=== PATIENT | male | born 1940 | race African-American/Black ===

== ENCOUNTER 2016-10-06 20:24 | Emergency (ER) | payer OTHER, MEDICARE ==
[~2016-10-06] VITALS: Ht 170.2 cm; Wt 48.1 kg
[~2016-10-06 20:24] MED LIST: ALBU2.5V7 INH; CARB-60 PO; COR12.5 PO; DOCU-144 PO; INSU100V SQ; INSU100V9 SUBCUT; MULT-1189 PO; NOR10 PO; SENN-153 PO
--- NOTE | 2016-10-06 20:39 | NUR ---
Placed in room 08 . Placed on apartment property manager, blood pressure machine and pulse oximeter. To gown for exam. Side rails up.
[2016-10-06 20:40] VITALS: BP 125/62; PULSE 90; RESP 18; TEMP 98.3; O2SAT 98
--- NOTE | 2016-10-06 20:45 | NUR ---
ER Dr. Rocha at bedside examining patient.
[2016-10-06] MEDS ORDERED: NACL 0.9% 1,000 ML IV SCH (20:49)
--- NOTE | 2016-10-06 20:55 | NUR ---
Pt came from home, A&Ox4, c/o low blood pressure, dizziness, lightheadedness and rash. Rash noted to groin area. No chest pain or sob noted. MD aware. Safety maintained. Continue to monitor
[2016-10-06 21:19] LABS: ANION GAP 8 (5-15); CALCIUM 8.7 mg/dL (8.4-11.0); CHLORIDE 106 mmol/L (98-107); CREATININE 1.75 mg/dL (0.55-1.30); GLUCOSE 205 mg/dL (70-99); SODIUM SERUM 138 mmol/L (136-145); UREA NITROGEN, BLOOD 25 mg/dL (8-21)
[2016-10-06 21:22] LABS: BASOPHILS # (AUTO) 0.1 K/uL (0.0-0.2); EOSINOPHILS % (AUTO) 0.4 % (0.0-4.0); HEMATOCRIT 35.6 % (36-54); HEMOGLOBIN 12.4 g/dL (14.0-18.0); LYMPHOCYTES # (AUTO) 2.2 K/uL (1.0-5.5); LYMPHOCYTES % (AUTO) 20.2 % (20.5-51.5); MEAN CORPUSCULAR HEMOGLOBIN 33 pg (27-31); MEAN CORPUSCULAR HGB CONC 35 % (32-36); MEAN CORPUSCULAR VOLUME 94 fL (79.0-98.0); MONOCYTES # (AUTO) 0.7 K/uL (0.0-1.0); NEUTROPHILS # (AUTO) 7.6 K/uL (1.8-7.7); NEUTROPHILS % (AUTO) 71.4 % (40.0-70.0); PLATELET COUNT (AUTO) 180 K/uL (130-430); RED BLOOD CELL COUNT(AUTO) 3.78 MIL/uL (4.2-6.2); WHITE BLOOD COUNT (AUTO) 10.6 K/uL (4.8-10.8)
[2016-10-06 21:24] LABS: ALANINE AMINOTRANSFERASE 28 U/L (12-78); ALBUMIN 3.7 g/dL (3.4-4.8); ASPARTATE AMINOTRANSFERASE 19 U/L (10-37); TOTAL BILIRUBIN 0.8 mg/dL (0.0-1.0); TOTAL PROTEIN, SERUM 6.7 g/dL (6.4-8.3)
[2016-10-07] MEDS ORDERED: CLOTRIMAZOLE 1% TOPICAL CREAM 15 GM TP ONE
[2016-10-07 00:01] VITALS: BP 118/70; PULSE 90; RESP 18; TEMP 98.3; O2SAT 98
--- NOTE | 2016-10-07 00:01 | NUR ---
Patient given written and verbal discharge instructions and verbalizes understanding. ER MD discussed with patient the results and treatment provided. Patient in stable condition. ID arm band removed. IV catheter removed intact and dressing applied, no active bleeding. Rx of Lotrimin given. Patient educated on pain management and to follow up with PMD. Pain Scale 0/10. Opportunity for questions provided and answered.
== END 2016-10-07 00:01 | disposition home or self-care (01) ==
LOC: SED 20:24
DX: E86.0 Dehydration (principal); B35.9 Dermatophytosis, unspecified; E11.9 Type 2 diabetes mellitus without complications; G20 Parkinson's disease; F02.80 Dementia in other diseases classified elsewhere, unspecified severity, without behavioral disturbance, psychotic disturbance, mood disturbance, and anxiety; Z79.4 Long term (current) use of insulin; Z79.899 Other long term (current) drug therapy
CPT/HCPCS: 36415; 71010; 80053; 83605; 84484; 85025; 85610; 85730; 93005; 96360; 99285; J7030

== ENCOUNTER 2017-01-21 15:21 | Inpatient (IN) | payer OTHER, MEDICARE ==
[~2017-01-21] VITALS: Ht 167.6 cm; Wt 81.6 kg
[2017-01-21 15:46] VITALS: BP_SYST 85
[2017-01-21] MEDS ORDERED: ONDANSETRON HCL 4 MG/2 ML VIAL IVP ONE (16:15)
[2017-01-21] MEDS ORDERED: NACL 0.9% 1,000 ML IV ONE (16:15)
[2017-01-21 16:16] LABS: BASOPHILS # (AUTO) 0.1 K/uL (0.0-0.2); BASOPHILS % (AUTO) 1.1 % (0.0-2.0); EOSINOPHILS % (AUTO) 0.1 % (0.0-4.0); HEMATOCRIT 37.5 % (36-54); HEMOGLOBIN 12.6 g/dL (14.0-18.0); LYMPHOCYTES # (AUTO) 1.8 K/uL (1.0-5.5); LYMPHOCYTES % (AUTO) 14.5 % (20.5-51.5); MEAN CORPUSCULAR HEMOGLOBIN 33 pg (27-31); MEAN CORPUSCULAR HGB CONC 34 % (32-36); MEAN CORPUSCULAR VOLUME 97 fL (79.0-98.0); MONOCYTES # (AUTO) 0.3 K/uL (0.0-1.0); MONOCYTES % (AUTO) 2.2 % (1.7-9.3); NEUTROPHILS # (AUTO) 10.1 K/uL (1.8-7.7); NEUTROPHILS % (AUTO) 82.1 % (40.0-70.0); PLATELET COUNT (AUTO) 177 K/uL (130-430); RED BLOOD CELL COUNT(AUTO) 3.87 MIL/uL (4.2-6.2); RED CELL DISTRIBUTION WIDTH 12.2 % (9.0-15.0); WHITE BLOOD COUNT (AUTO) 12.3 K/uL (4.8-10.8)
[2017-01-21 16:39] LABS: ANION GAP 5 (5-15); CALCIUM 9.5 mg/dL (8.4-11.0); CHLORIDE 104 mmol/L (98-107); CREATININE 2.42 mg/dL (0.55-1.30); GLUCOSE 270 mg/dL (70-99); POTASSIUM 4.9 mmol/L (3.5-5.1); SODIUM SERUM 136 mmol/L (136-145); UREA NITROGEN, BLOOD 27 mg/dL (8-21)
[2017-01-21 16:41] LABS: PROTHROMBIN TIME 10.8 SECS (9.5-12.5)
[2017-01-21 16:44] LABS: ALANINE AMINOTRANSFERASE 21 U/L (12-78); ALBUMIN 3.8 g/dL (3.4-4.8); ASPARTATE AMINOTRANSFERASE 18 U/L (10-37); TOTAL BILIRUBIN 1.1 mg/dL (0.0-1.0)
[2017-01-21] MEDS ORDERED: PIPERACILLIN/TAZO 3.38 GM in D5W 50 ML IV ONE (18:00)
[2017-01-21] MEDS ORDERED: VANCOMYCIN HCL 1,000 MG in D5W 250 ML IV ONE (18:00)
[2017-01-21] MEDS ORDERED: PIPERACILLIN/TAZOBACTAM 3.375 GM/VIAL (ZOSYN) IV ONE (18:07)
[2017-01-21] MEDS ORDERED: VANCOMYCIN HCL 1000 MG/VIAL IV ONE (18:07)
[2017-01-21 18:37] LABS: BILIRUBIN,URINE NEGATIVE (NEGATIVE); BLOOD, URINE NEGATIVE (NEGATIVE); CLARITY/URINE HAZY (CLEAR); COLOR,URINE YELLOW (YELLOW); GLUCOSE,URINE NEGATIVE (NEGATIVE); KETONES,URINE TRACE (NEGATIVE); LEUKOCYTE ESTERASE ,URINE NEGATIVE (NEGATIVE); NITRITE, URINE NEGATIVE (NEGATIVE); PH,URINE 5.5 (5.0-8.0); PROTEIN URINE 1+ (NEGATIVE); UROBILINOGEN,URINE 0.2 (0.2-1.0)
[2017-01-21 19:29] LABS: BACTERIA,URINE FEW /HPF (None Seen); MUCUS,URINE 3+ /LPF (None Seen); RBC,URINE 0-3 /HPF (0-3)
[2017-01-21 19:30] LABS: FINE GRANULAR CASTS,URINE 30-50 /LPF (None Seen)
[2017-01-21 19:56] VITALS: BP_SYST 149
[2017-01-21 20:00] VITALS: BP_SYST 149
[2017-01-21] MEDS ORDERED: ALBUTEROL SULFATE 0.083% 2.5 MG/3 ML VIAL.NEB INH PRN (23:30)
[2017-01-21 23:50] VITALS: BP_SYST 149
[2017-01-22] VITALS: BP_SYST 134
[2017-01-22] MEDS ORDERED: ACETAMINOPHEN 325 MG TABLET PO PRN
[2017-01-22] MEDS ORDERED: DEXTROSE 50% JECT 50 ML DISP.SYRIN IVP PRN
[2017-01-22 04:01] VITALS: BP_SYST 129
[2017-01-22 06:36] LABS: BASOPHILS % (AUTO) 0.2 % (0.0-2.0); EOSINOPHILS # (AUTO) 0.1 K/uL (0.0-0.4); EOSINOPHILS % (AUTO) 0.5 % (0.0-4.0); HEMATOCRIT 35.7 % (36-54); HEMOGLOBIN 12.2 g/dL (14.0-18.0); LYMPHOCYTES # (AUTO) 3.3 K/uL (1.0-5.5); LYMPHOCYTES % (AUTO) 22.5 % (20.5-51.5); MEAN CORPUSCULAR HEMOGLOBIN 33 pg (27-31); MEAN CORPUSCULAR HGB CONC 34 % (32-36); MEAN CORPUSCULAR VOLUME 97 fL (79.0-98.0); MONOCYTES # (AUTO) 0.8 K/uL (0.0-1.0); MONOCYTES % (AUTO) 5.5 % (1.7-9.3); NEUTROPHILS # (AUTO) 10.5 K/uL (1.8-7.7); NEUTROPHILS % (AUTO) 71.3 % (40.0-70.0); PLATELET COUNT (AUTO) 166 K/uL (130-430); RED BLOOD CELL COUNT(AUTO) 3.69 MIL/uL (4.2-6.2); WHITE BLOOD COUNT (AUTO) 14.7 K/uL (4.8-10.8)
[2017-01-22 07:08] LABS: POTASSIUM 4.2 mmol/L (3.5-5.1); SODIUM SERUM 141 mmol/L (136-145)
[2017-01-22 07:25] LABS: ERYTHROCYTE SEDIMENTATION RATE 13 MM/HR (0-15)
[2017-01-22 07:51] LABS: ALANINE AMINOTRANSFERASE 28 U/L (12-78); ALBUMIN 3.5 g/dL (3.4-4.8); ANION GAP 5 (5-15); ASPARTATE AMINOTRANSFERASE 20 U/L (10-37); CALCIUM 9.4 mg/dL (8.4-11.0); CHLORIDE 108 mmol/L (98-107); CREATININE 1.45 mg/dL (0.55-1.30); FREE T4 (FREE THYROXINE) 0.6 ng/dL (0.6-1.6); GLUCOSE 106 mg/dL (70-99); TOTAL BILIRUBIN 1.4 mg/dL (0.0-1.0); TOTAL PROTEIN, SERUM 6.7 g/dL (6.4-8.3); UREA NITROGEN, BLOOD 22 mg/dL (8-21)
[2017-01-22 08:00] VITALS: BP_SYST 140
[2017-01-22] MEDS: CARBIDOPA/LEVODOPA 10/100 MG TABLET PO SCH ×4 (08:45→20:50)
[2017-01-22] MEDS: TAMSULOSIN HCL 0.4 MG CAP PO SCH (08:45)
[2017-01-22] MEDS: DOCUSATE SODIUM 100 MG CAPSULE PO SCH (08:45)
[2017-01-22] MEDS: CARVEDILOL 12.5 MG TABLET (COREG) PO SCH ×2 (08:45→20:49)
[2017-01-22] MEDS: SENNOSIDES 8.6 MG TABLET PO SCH (08:45)
[2017-01-22] MEDS ORDERED: amLODIPine BESYLATE 10 MG TABLET PO SCH (09:00)
[2017-01-22 12:26] VITALS: BP_SYST 132
[2017-01-22 16:07] VITALS: BP_SYST 136
[2017-01-22] MEDS ORDERED: INSULIN REGULAR, HUMAN 100 UNITS/ML, 10 ML VIAL (novoLIN R) SUBCUT PRN ×2 (19:00)
[2017-01-22 20:00] VITALS: BP_SYST 134
[2017-01-22] MEDS: cefTRIAXone 1 GM in D5W 50 ML IV SCH (20:48)
[2017-01-22] MEDS: AZITHROMYCIN 500 MG in NS 250 ML IV SCH (22:14)
[2017-01-23 00:05] VITALS: BP_SYST 133
[2017-01-23 03:51] VITALS: BP_SYST 128
[2017-01-23 07:18] LABS: ANION GAP 2 (5-15); CALCIUM 9.4 mg/dL (8.4-11.0); CHLORIDE 105 mmol/L (98-107); CREATININE 1.17 mg/dL (0.55-1.30); GLUCOSE 93 mg/dL (70-99); POTASSIUM 4.4 mmol/L (3.5-5.1); SODIUM SERUM 138 mmol/L (136-145); UREA NITROGEN, BLOOD 20 mg/dL (8-21)
[2017-01-23] MEDS: TAMSULOSIN HCL 0.4 MG CAP PO SCH (09:23)
[2017-01-23] MEDS: CARVEDILOL 12.5 MG TABLET (COREG) PO SCH ×2 (09:23→20:57)
[2017-01-23] MEDS: SENNOSIDES 8.6 MG TABLET PO SCH (09:24)
[2017-01-23] MEDS: DOCUSATE SODIUM 100 MG CAPSULE PO SCH (09:24)
[2017-01-23 09:26] VITALS: BP_SYST 146
[2017-01-23 11:07] LABS: FREE PSA 0.07 ng/mL; PROSTATE SPECIFIC AG TOTAL 0.2 ng/mL (0.0-4.0)
[2017-01-23] MEDS: CARBIDOPA/LEVODOPA 10/100 MG TABLET PO SCH ×4 (11:10→20:56)
[2017-01-23 11:31] VITALS: BP_SYST 139
[2017-01-23 13:02] LABS: HEMOGLOBIN A1C 6.6 % (4.8-5.6)
[2017-01-23] MEDS ORDERED: INSULIN ASPART 100 UNITS/ML, 10 ML VIAL (NovoLOG) SUBCUT PRN (15:45)
[2017-01-23 16:43] VITALS: BP_SYST 131
[2017-01-23] MEDS: cefTRIAXone 1 GM in D5W 50 ML IV SCH (17:07)
[2017-01-23] MEDS: AZITHROMYCIN 500 MG in NS 250 ML IV SCH (17:08)
[2017-01-24 04:53] VITALS: BP_SYST 128
[2017-01-24 06:21] LABS: BASOPHILS % (AUTO) 0.4 % (0.0-2.0); EOSINOPHILS # (AUTO) 0.2 K/uL (0.0-0.4); HEMATOCRIT 36.2 % (36-54); HEMOGLOBIN 12.4 g/dL (14.0-18.0); LYMPHOCYTES # (AUTO) 3.7 K/uL (1.0-5.5); LYMPHOCYTES % (AUTO) 38.4 % (20.5-51.5); MEAN CORPUSCULAR HEMOGLOBIN 33 pg (27-31); MEAN CORPUSCULAR HGB CONC 34 % (32-36); MEAN CORPUSCULAR VOLUME 97 fL (79.0-98.0); MONOCYTES # (AUTO) 0.7 K/uL (0.0-1.0); MONOCYTES % (AUTO) 6.8 % (1.7-9.3); NEUTROPHILS % (AUTO) 52.4 % (40.0-70.0); PLATELET COUNT (AUTO) 176 K/uL (130-430); RED BLOOD CELL COUNT(AUTO) 3.71 MIL/uL (4.2-6.2); RED CELL DISTRIBUTION WIDTH 12.1 % (9.0-15.0); WHITE BLOOD COUNT (AUTO) 9.6 K/uL (4.8-10.8)
[2017-01-24 06:32] LABS: ALANINE AMINOTRANSFERASE 20 U/L (12-78); ALBUMIN 3.4 g/dL (3.4-4.8); ANION GAP 5 (5-15); ASPARTATE AMINOTRANSFERASE 24 U/L (10-37); CALCIUM 8.9 mg/dL (8.4-11.0); CHLORIDE 106 mmol/L (98-107); CREATININE 1.21 mg/dL (0.55-1.30); GLUCOSE 76 mg/dL (70-99); POTASSIUM 3.9 mmol/L (3.5-5.1); SODIUM SERUM 140 mmol/L (136-145); THYROID STIMULATING HORMONE 7.06 uIu/mL (0.34-4.82); TOTAL BILIRUBIN 0.8 mg/dL (0.0-1.0); TOTAL PROTEIN, SERUM 6.5 g/dL (6.4-8.3); UREA NITROGEN, BLOOD 20 mg/dL (8-21)
[2017-01-24 08:00] VITALS: BP_SYST 125
[2017-01-24] MEDS: CARBIDOPA/LEVODOPA 10/100 MG TABLET PO SCH ×2 (08:57→12:01)
[2017-01-24] MEDS: DOCUSATE SODIUM 100 MG CAPSULE PO SCH (08:58)
[2017-01-24] MEDS: SENNOSIDES 8.6 MG TABLET PO SCH (08:58)
[2017-01-24] MEDS: CARVEDILOL 12.5 MG TABLET (COREG) PO SCH (08:58)
[2017-01-24] MEDS: TAMSULOSIN HCL 0.4 MG CAP PO SCH (08:58)
[2017-01-24 11:45] VITALS: BP_SYST 111
[2017-01-24 14:00] VITALS: BP_SYST 111
[2017-01-24 14:38] VITALS: BP_SYST 121
[2017-01-24] MEDS ORDERED: LEVO250T20 PO (14:56)
[2017-01-24] MEDS ORDERED: L.RH1CAP PO (14:57)
[2017-01-24] MEDS ORDERED: INSU100V11 SQ (14:58)
[2017-01-24 16:00] VITALS: BP_SYST 139
== END 2017-01-24 16:04 | disposition home health service (06) | DRG 871 ==
LOC: SED 15:21 → STU 18:36 → SMU 01-23 19:03
PROVIDERS: ADMIT Internal Medicine; ATTEND Internal Medicine
DX: A41.9 Sepsis, unspecified organism (principal); N17.0 Acute kidney failure with tubular necrosis; G93.41 Metabolic encephalopathy; B34.9 Viral infection, unspecified; F03.90 Unspecified dementia, unspecified severity, without behavioral disturbance, psychotic disturbance, mood disturbance, and anxiety; I10 Essential (primary) hypertension; G20 Parkinson's disease; E86.0 Dehydration; N40.0 Benign prostatic hyperplasia without lower urinary tract symptoms; E03.9 Hypothyroidism, unspecified; E11.649 Type 2 diabetes mellitus with hypoglycemia without coma; W01.0XXA Fall on same level from slipping, tripping and stumbling without subsequent striking against object, initial encounter; Y99.8 Other external cause status; Z79.899 Other long term (current) drug therapy; Z79.4 Long term (current) use of insulin; Y93.89 Activity, other specified; Y92.89 Other specified places as the place of occurrence of the external cause; Z86.73 Personal history of transient ischemic attack (TIA), and cerebral infarction without residual deficits
CPT/HCPCS: 36415; 70450-TC; 71010; 71020-TC; 76770; 80048; 80053; 81000-TC; 82607; 82962; 83036; 83605; 83880; 84100-TC; 84153; 84439; 84443-TC; 84484; 85025; 85610-TC; 85651-TC; 85730-TC; 87040-TC; 87086; 93005; 95816; 96361; 96365; 99285; J0456; J0696; J1815; J2543; J3370; J7030; J7050; J7060

== ENCOUNTER 2018-11-12 21:13 | Inpatient (IN) | payer OTHER, MEDICARE ==
[~2018-11-12] VITALS: Ht 177.8 cm; Wt 74.8 kg
[~2018-11-12 21:13] MED LIST changes: +INSU100V11 SQ; +L.RH1CAP PO; +LEVO250T2 PO; -NOR10 PO
[2018-11-12 21:20] VITALS: BP_SYST 127
--- NOTE | 2018-11-12 21:26 | NUR ---
Patient triaged and placed in waiting room. VSS and patient appears in no acute distress at this time. Accompanied by family, awaiting available bed, and MD notified of need for MSE.
--- NOTE | 2018-11-12 22:13 | NUR ---
Patient to ER bed 05 to gown for evaluation. Side rails up. Report given to ANAND Gonsalves
--- NOTE | 2018-11-12 22:24 | NUR ---
Radiology at bedside for XR
--- NOTE | 2018-11-12 22:28 | NUR ---
Pt AAOx4 ambulated into ED with walker c/o 03/19 pain to R hip s/p fall x 2 days ago. Pt denies KO/N/V/D. No deformity noted to site. No other injuries/complaints per pt/noted. Will continue to monitor.
--- NOTE | 2018-11-12 22:36 | NUR ---
ER Dr. Ledbetter at bedside examining patient.
--- NOTE | 2018-11-12 22:51 | NUR ---
Pt dressed in gown and awaiting exam by MD Ledbetter.
[2018-11-12 23:41] LABS: HEMATOCRIT 32.9 % (36-54); HEMOGLOBIN 10.9 g/dL (14.0-18.0); MEAN CORPUSCULAR HEMOGLOBIN 33 pg (27-31); MEAN CORPUSCULAR HGB CONC 33 % (32-36); MEAN CORPUSCULAR VOLUME 101 fL (79.0-98.0); PLATELET COUNT (AUTO) 182 K/uL (130-430); RED BLOOD CELL COUNT(AUTO) 3.27 MIL/uL (4.2-6.2); RED CELL DISTRIBUTION WIDTH 13.8 % (9.0-15.0); WHITE BLOOD COUNT (AUTO) 29.7 K/uL (4.8-10.8)
--- NOTE | 2018-11-12 23:46 | NUR ---
Xray at bedside, pt tolerated well.
[2018-11-12 23:53] LABS: ATYPICAL LYMPHOCYTES % 3 % (0-0); BAND % (MANUAL) 5 % (0-6); BASOPHILS % (MANUAL) 0 % (0-2); EOSINOPHILS % (MANUAL) 0 % (0-7); LYMPHOCYTES % (MANUAL) 77 % (20-46); METAMYELOCYTES % 0 % (0-0); MONOCYTES % (MANUAL) 4 % (0-11); MYELOCYTES % 0 % (0-0)
[2018-11-12 23:56] LABS: ANION GAP 10 (5-15); CALCIUM 8.8 mg/dL (8.4-11.0); CHLORIDE 104 mmol/L (98-107); GLUCOSE 113 mg/dL (70-99); POTASSIUM 4.6 mmol/L (3.5-5.1); SODIUM SERUM 138 mmol/L (136-145); UREA NITROGEN, BLOOD 45 mg/dL (8-21)
[2018-11-13 00:01] LABS: ALANINE AMINOTRANSFERASE 14 U/L (12-78); ALBUMIN 3.4 g/dL (3.4-4.8); ASPARTATE AMINOTRANSFERASE 24 U/L (10-37); TOTAL BILIRUBIN 0.6 mg/dL (0.0-1.0)
[2018-11-13] MEDS ORDERED: MORPHINE 2 MG/ML INJ. SYRINGE IM ONE (01:45)
[2018-11-13 02:18] LABS: BILIRUBIN,URINE NEGATIVE (NEGATIVE); BLOOD, URINE NEGATIVE (NEGATIVE); CLARITY/URINE CLEAR (CLEAR); COLOR,URINE YELLOW (YELLOW); GLUCOSE,URINE NEGATIVE (NEGATIVE); KETONES,URINE TRACE (NEGATIVE); LEUKOCYTE ESTERASE ,URINE NEGATIVE (NEGATIVE); NITRITE, URINE NEGATIVE (NEGATIVE); PH,URINE 6.5 (5.0-8.0); PROTEIN URINE TRACE (NEGATIVE); UROBILINOGEN,URINE 0.2 (0.2-1.0)
[2018-11-13 02:25] LABS: BACTERIA,URINE FEW /HPF (None Seen); WBC,URINE 0-3 /HPF (0-3)
--- NOTE | 2018-11-13 02:29 | NUR ---
Ultrasound at bedside.
[2018-11-13] MEDS ORDERED: VANCOMYCIN HCL 1,000 MG in NS 250 ML IV ONE (02:30)
[2018-11-13] MEDS ORDERED: PIPERACILLIN/TAZO 3.375 GM in NS 50 ML IV ONE (02:30)
[2018-11-13] MEDS ORDERED: VANCOMYCIN HCL 1000 MG/VIAL IV ONE (03:06)
[2018-11-13] MEDS ORDERED: PIPERACILLIN/TAZOBACTAM 3.375 GM/VIAL (ZOSYN) IV ONE (03:06)
--- NOTE | 2018-11-13 03:19 | NUR ---
Patient will be admitted to care of DR. Rao. Admitted to Med Surg unit. Will go to room 132 A. Belongings list completed. Summary report printed. Report will be given at bedside.
--- NOTE | 2018-11-13 03:19 | NUR ---
Transfer to [facility]. IV present no sign or symptom of infiltration.
--- NOTE | 2018-11-13 03:28 | NUR ---
ADMISSION: The patient, HEYDI CHAMPAGNE V, 78 y/o, M admitted by DEMARCUS ATKINS MD, to room 132 a with the diagnosis of multiple fall , r hip trauma ,was given written information regarding hospital policies, unit procedures and contact persons.
[2018-11-13 03:30] VITALS: BP_SYST 145
--- NOTE | 2018-11-13 03:50 | NUR ---
ADMISSION PHYSICAL ASSESSMENT NOTES; report given by nurse scot White. awake, alert but disoriented. oriented to place, and use of call light. IV antibiotic started and regulated via left antecubital. no acute distress, hx of fall, rt. hip pain due to trauma of falling. VS checked, routine admission done. moves all extremities. skin intact, on room air no shortness of breath. fall risk precautions, bed alarm on, side rails up. waiting for Lactic acid result.
[2018-11-13 04:00] VITALS: BP_SYST 145
--- NOTE | 2018-11-13 04:14 | NUR ---
NOTES: pt. did not use call light, got out of bed to void, set off bed alarm. back to bed, alarm on. pt. room close to nurses station.
--- NOTE | 2018-11-13 04:44 | NUR ---
NOTES: pt. get out of bed without calling, voided per urinal. reminded pt. to use call light for help.
--- NOTE | 2018-11-13 05:30 | NUR ---
NOTES; pt. been awake, and getting up and out of bed to void. denies any pain,
--- NOTE | 2018-11-13 06:45 | NUR ---
CLOSING NOTES; pt. looking for his , getting disoriented but calm, informed him will call , back to bed, alarm on. IV antibiotic still infusing. fall risk precautions. call light at bedside, forgets to use call light, frequent rounds. for further care and assistance.
--- NOTE | 2018-11-13 07:55 | NUR ---
INITIAL NOTE RECEIVED PT IN BED, NO S/S OF DISTRESS OR SOB NOTED, PT HAS NO C/O PAIN AT THIS TIME, PT IN STABLE CONDITION. PT AAOX1, VERBAL, CONFUSED BUT ABLE TO FOLLOW SIMPLE DIRECTIONS, PROVIDED PT WITH REALITY ORIENTATION. IV CATHETER PATENT, NO SIGNS OF INFECTION OR INFILTRATION NOTED, SALINE LOCK. BED AT LOWEST POSITION, CALL LIGHT WITHIN REACH, WILL CONTINUE TO MONITOR PT FOR ANY CHANGES, SAFETY AND FALL PRECAUTIONS IN PLACE.
[2018-11-13 08:20] VITALS: BP_SYST 148
--- NOTE | 2018-11-13 08:57 | NUR ---
Nutrition Update Jose Rafael Scale 14 noted. Pt admitted for multiple falls w/ R hip trauma. Diet: mechanical soft BMI: 23.7 kg/m2 RD to follow per nutrition care standards.
--- NOTE | 2018-11-13 09:30 | NUR ---
RESTLESS/CONFUSED PT CONFUSED, REMOVED IV CATHETER,NO ACTIVE BLEEDING NOTED, DRESSING IN PLACE, CATHETER IN PLACE. PT ATTEMPTING TO GET OUT OF BED, NO DIRECTABLE, PT ALREADY FELL BEFORE COMING TO HOSPITAL AND IS A HIGH RISK FOR FALLS. BED ALARM ON, YELLOW GOWN, SOCKS AND BAND ON.
--- NOTE | 2018-11-13 09:38 | NUR ---
MD CALL SPOKE WITH DR ATKINS IN REGARDS TO PT BEING CONFUSED AND PULLING OUT HIS IV CATHETER, NO ACTIVE BLEEDING NOTED, DRESSING IN PLACE, UNABLE TO ORIENT PT DUE TO MENTAL STATUS, ORDERED SITTER FOR SAFETY, FALL PRECAUTIONS IN PLACE, YELLOW GOWN, SOCK, YELLOW WRISTBAND AND BED ALARM ON.
--- NOTE | 2018-11-13 10:25 | NUR ---
ROUNDS PT IN BED, NO S/S OF DISTRESS OR SOB NOTED, PT SLEEPING, NOTED NO FACIAL GRIMACING FOR PAIN, NURSE AT BEDSIDE FOR SAFETY, WILL CONTINUE TO MONITOR PT FOR ANY CHANGES.
[2018-11-13] MEDS: INSULIN REGULAR, HUMAN 100 UNITS/ML, 10 ML VIAL (novoLIN R) SUBCUT PRN ×2 (11:19→17:18)
--- NOTE | 2018-11-13 12:10 | NUR ---
ROUNDS PT IN BED, ATTEMPTING TO GET OUT BED, NO S/S OF DISTRESS OR SOB NOTED, PT HAS NO C/O PAIN AT THIS TIME, PT IN STABLE CONDITION, PT REDIRECTED BACK TO BED, PT CONTINUES TO BE CONFUSED, SITTER AT BEDSIDE FOR SAFETY.
[2018-11-13 12:17] VITALS: BP_SYST 145
[2018-11-13] MEDS ORDERED: ALBUTEROL SULFATE 0.083% 2.5 MG/3 ML VIAL.NEB INH PRN (13:45)
[2018-11-13] MEDS ORDERED: CARVEDILOL 12.5 MG TABLET (COREG) PO ONE (13:45)
[2018-11-13] MEDS ORDERED: CARBIDOPA/LEVODOPA 10/100 MG TABLET PO ONE (13:45)
[2018-11-13] MEDS: 0.45% NACL 1,000 ML IV SCH (14:10)
--- NOTE | 2018-11-13 14:19 | NUR ---
IV PLACEMENT: # 22 gauge angiocath placed to left forearm. Use of asceptic technique. Opsite placed over site. Blood return noted. Flushed with 10 cc of normal saline. No evidence of infiltration noted. Patient tolerated. Successful after one attempt.
[2018-11-13 16:06] VITALS: BP_SYST 129
--- NOTE | 2018-11-13 16:54 | NUR ---
ROUNDS PT IN BED, PT SLEEPING, NO S/S OF DISTRESS OR SOB NOTED, PT HAS NO FACIAL GRIMACING NOTED FOR PAIN, PT IN STABLE CONDITION, SITTER AT BEDSIDE FOR SAFETY. WILL CONTINUE TO MONITOR PT FOR ANY CHANGES.
--- NOTE | 2018-11-13 18:13 | NUR ---
CLOSING NOTE PT IN BED, NO S/S OF DISTRESS OR SOB NOTED, PT HAS NO C/O PAIN AT THIS TIME, PT IN STABLE CONDITION. PT AAOX1, VERBAL, CONFUSED. SITTER AT BEDSIDE FOR SAFETY. IV CATHETER PATENT, NO SIGNS OF INFECTION OR INFILTRATION NOTED, RUNNING IV FLUIDS ORDERED. BED AT LOWEST POSITION, CALL LIGHT WITHIN REACH, WILL ENDORSE CARE OF PT TO INCOMING NURSE, SAFETY AND FALL PRECAUTIONS IN PLACE.
--- NOTE | 2018-11-13 19:15 | NUR ---
Initial note: Received report from dayshift RN. Patient is resting in bed, no distress. Alert and oriented to name only. Able to communicate needs. Respirations are even and unlabored on room air. IV site to left forearm is patent and benign, receiving IV fluids well. Call light is with patient. Safety and fall precautions in place. This RN present at bedside as sitter, will remain at bedside for patient's safety as ordered by MD. Will continue with plan of care.
--- NOTE | 2018-11-13 19:46 | NUR ---
at bedside: Patient's is present at bedside, provided with update regarding patient's condition. Per , patient called her earlier today and asked for her to see him; however, patient does not recall this ever happening. Patient believes that he is not at the hospital and that his is here to take him home. and this RN reoriented patient to surroundings. Will continue to monitor.
[2018-11-13] MEDS: LACTOBACILLUS RHAMNOSUS GG 1 CAP CAPSULE PO SCH (19:57)
[2018-11-13] MEDS: CARVEDILOL 12.5 MG TABLET (COREG) PO SCH (19:57)
[2018-11-13] MEDS: CARBIDOPA/LEVODOPA 10/100 MG TABLET PO SCH (19:57)
--- NOTE | 2018-11-13 20:02 | NUR ---
Blood sugar: Patient's blood sugar at this time is 127. No insulin administered per sliding scale. Will continue monitoring.
[2018-11-13 20:29] VITALS: BP_SYST 146
--- NOTE | 2018-11-13 22:33 | NUR ---
BRP: Patient ambulated to restroom to void with steady gait. Ambulated back to bed safely. Safety and fall precautions observed. Will continue to monitor. Addendum: 11/13/18 at 2234 by Shan Ontiveros RN Correction: Please disregard above note, wrong patient.
--- NOTE | 2018-11-13 22:37 | NUR ---
Resting: Patient is resting in bed, no distress. Respirations are even and unlabored on room air. IV site in place, receiving IV fluids well. Sitter at bedside. Safety and fall precautions in place. Will continue to monitor.
[2018-11-14 00:40] VITALS: BP_SYST 146
--- NOTE | 2018-11-14 01:38 | NUR ---
Resting: Patient is resting in bed, no distress noted. Respirations even and unlabored on room air. IV fluids infusing well. Sitter at bedside at all times. Will continue monitoring.
--- NOTE | 2018-11-14 04:09 | NUR ---
Awake: Patient was awake and attempted to get out of bed. Patient stated was going to buy a pair of blue jeans. He was was unaware that he was in a hospital. Reoriented patient to surroundings. Patient now back to sleep. Sitter present at bedside. Will continue monitoring.
[2018-11-14] MEDS: 0.45% NACL 1,000 ML IV SCH ×2 (04:35→17:18)
--- NOTE | 2018-11-14 06:04 | NUR ---
Closing note: Patient is sitting up in bed watching TV. No acute distress. Patient voided using urinal throughout shift, requires some assistance. IV fluids infusing well. All needs met. Sitter remained at bedside for duration of shift. Will endorse to dayshift RN.
[2018-11-14 07:07] VITALS: BP_SYST 152
[2018-11-14 07:12] LABS: BASOPHILS % (AUTO) 0.1 % (0.0-2.0); EOSINOPHILS # (AUTO) 0.1 K/uL (0.0-0.4); MONOCYTES # (AUTO) 0.5 K/uL (0.0-1.0); MONOCYTES % (AUTO) 1.5 % (1.7-9.3)
[2018-11-14 07:19] LABS: ANION GAP 7 (5-15); CALCIUM 9.4 mg/dL (8.4-11.0); CHLORIDE 105 mmol/L (98-107); CREATININE 1.17 mg/dL (0.55-1.30); GLUCOSE 103 mg/dL (70-99); POTASSIUM 4.5 mmol/L (3.5-5.1); SODIUM SERUM 136 mmol/L (136-145); UREA NITROGEN, BLOOD 28 mg/dL (8-21)
--- NOTE | 2018-11-14 07:40 | NUR ---
INITIAL NOTE RECEIVED PATIENT FROM OAKES MACHINE OPERATOR NURSE, PATIENT CURRENTLY RESTING IN BED, PATIENT HAS IV IN LEFT FOREARM WITH IV FLUIDS INFUSING, NO SIGNS OF INFILTRATION NOTED, BED IN LOWEST POSITION, SIDE RAILS UP, FALL PRECAUTIONS IN PLACE.
[2018-11-14 08:19] LABS: EOSINOPHILS % (AUTO) 0.3 % (0.0-4.0); HEMATOCRIT 39.4 % (36-54); HEMOGLOBIN 13.1 g/dL (14.0-18.0); LYMPHOCYTES # (AUTO) 25.5 K/uL (1.0-5.5); LYMPHOCYTES % (AUTO) 79.3 % (20.5-51.5); MEAN CORPUSCULAR HEMOGLOBIN 34 pg (27-31); MEAN CORPUSCULAR HGB CONC 33 % (32-36); MEAN CORPUSCULAR VOLUME 101 fL (79.0-98.0); PLATELET COUNT (AUTO) 211 K/uL (130-430); RED CELL DISTRIBUTION WIDTH 13.9 % (9.0-15.0)
[2018-11-14 08:38] LABS: WHITE BLOOD COUNT (AUTO) 32.2 K/uL (4.8-10.8)
[2018-11-14] MEDS: DOCUSATE SODIUM 100 MG CAPSULE PO SCH (09:17)
[2018-11-14] MEDS: MULTIVITS,CA,MINERALS/IRON/FA 1 TABLET PO SCH (09:17)
[2018-11-14] MEDS: CARBIDOPA/LEVODOPA 10/100 MG TABLET PO SCH ×4 (09:17→20:33)
[2018-11-14] MEDS: LACTOBACILLUS RHAMNOSUS GG 1 CAP CAPSULE PO SCH ×2 (09:17→20:33)
[2018-11-14] MEDS: SENNOSIDES 8.6 MG TABLET PO SCH (09:17)
[2018-11-14] MEDS: CARVEDILOL 12.5 MG TABLET (COREG) PO SCH ×2 (09:18→20:32)
--- NOTE | 2018-11-14 09:31 | NUR ---
CONSULTATION PAGED REASON FOR CONSULTATION:HEYDI CHAMPAGNE V WAS CONSULT CALLED?Y PERSON WHO WAS NOTIFIED:LOCO CONSULTING PHYSICIAN:JOYA GARZA VICE PRESIDENT OF BRAND MANAGEMENT SPECIALTY:ONCOLOGY/HEMATOLOGY VICE PRESIDENT OF BRAND MANAGEMENT PHONE NUMBER:[phone] REQUESTING PHYSICIAN:DEMARCUS LOGAN
[2018-11-14] MEDS: INSULIN GLARGINE 100 UNITS/ML 10 ML VIAL SUBCUT SCH (09:37)
--- NOTE | 2018-11-14 10:00 | NUR ---
RN ROUNDS PATIENT UP WITH PT, PATIENT TOLERATED WELL, WILL CONTINUE TO MONITOR.
[2018-11-14 11:12] VITALS: BP_SYST 144
[2018-11-14 12:08] LABS: NEUTROPHILS % (AUTO) 18.8 % (40.0-70.0)
--- NOTE | 2018-11-14 12:54 | NUR ---
RN ROUNDS PATIENT CURRENTLY RESTING IN BED, NO SIGNS OF DISTRESS NOTED, CALL CALLES WITHIN REACH, WILL CONTINUE TO MONITOR.
--- NOTE | 2018-11-14 14:26 | NUR ---
RN ROUNDS PATIENT LAYING IN BED WATCHING TV, CALL CALLES WITHIN REACH, SITTER AT BEDSIDE, WILL CONTINUE TO MONITOR.
[2018-11-14 16:13] VITALS: BP_SYST 147
--- NOTE | 2018-11-14 16:27 | NUR ---
RN ROUNDS PATIENT SITTING UP IN BED WATCHING TV, SITTER AT BEDSIDE, WILL CONTINUE TO MONITOR.
--- NOTE | 2018-11-14 18:30 | NUR ---
CHANGE OF SHIFT.PT.PRESENTS QUIESCENT AFFECT;CALM.I HAVE TUNED THE TV PROGRAMMING TO BASKETBALL GAME;PT.APPRECIATED THE INTERVENTION.I HAVE ASSISTED THE PT.W/THE URINAL;PT.HAD ATTEMPTED TO LEAVED THE BED:PT.STATED HE NEEDED TO URINATE.I HAVE MEASURED/CLEANED THE URINAL.GENERAL STATUS STABLE. RESPIRATORY STATUS STABLE;UNLABORED.PT.CAPABLE TO REPOSITION SELF.CALL LIGHT/ TELEPHONE PLACED W/IN THE REACH OF THE PT.
--- NOTE | 2018-11-14 18:45 | NUR ---
CLOSING NOTE ENDORSED PATIENT TO CAR REPAIRER PULLMAN NURSE, ALL NEEDS MET, NO SIGNS OF DISTRESS NOTED THROUGHOUT SHIFT.
[2018-11-14 19:00] VITALS: BP_SYST 147
--- NOTE | 2018-11-14 19:00 | NUR ---
PT.ASSESSED.V/S ASSESSED;VALUES W/IN NORMAL LIMITS.I HAVE APPRISED THE PT.THAT SNACKS/BEVERAGES ARE AVAILABLE W/IN THE SHIFT.NO REQUESTS POSITED @THIS HOUR. PT.CAPABLE TO REPOSITION SELF.GENERAL STATUS STABLE.RESPIRATORY STATUS STABLE.CALL LIGHT/TELEPHONE PLACED W/IN THE REACH OF THE PT.
--- NOTE | 2018-11-14 19:30 | NUR ---
I HAVE ASSISTED THE PT.WITH THE URINAL.I HAVE MEASURED/CLEANED THE URINAL:PLACED W/IN THE REACH OF THE PT.
--- NOTE | 2018-11-14 19:45 | NUR ---
PT.HAS REQUESTED SNACKS.SNACKS HAVE BEEN PROVIDED.
[2018-11-14 20:00] VITALS: BP_SYST 147
--- NOTE | 2018-11-14 20:00 | NUR ---
pt.assessed.pt.assessed for cleanliness.general status stable.respiratory status stable. pt.capable to reposition self.call light/telephone placed w/in the reach of the pt.
--- NOTE | 2018-11-14 20:30 | NUR ---
i have assessed the blood glucose:value;104mg/dl.
--- NOTE | 2018-11-14 21:00 | NUR ---
2100p medications administered.i have provided additional snacks;jil galdamez.
--- NOTE | 2018-11-14 21:30 | NUR ---
pt.has spilled water upon the bed.i have provide complete bed linen change.
--- NOTE | 2018-11-14 22:00 | NUR ---
pt.assessed.pt.unable to sleep.i have paged .i have apprised of the pt's status. has ordered restoril:15mg po qhs/p.sleep.
[2018-11-14] MEDS: TEMAZEPAM 15 MG CAPSULE PO PRN (22:47)
--- NOTE | 2018-11-14 22:50 | NUR ---
i have assissted the pt.w/the urinal:i have measured/cleansed.i have administered restoril:15mg po .f/u re:medication efficacy.
--- NOTE | 2018-11-15 | NUR ---
pt.assessed;v/s assessed:values w/in normal limits.pt.presents quiescent affect;calm,somnolent. pt.assessed for cleanliness.pt.capable to reposition self.iv access assessed;intact;patent;iv fluids infusing. general status stable.respiratory status stable.call light/telephone placed w/in the reach of the pt.i have inspected the urinal;clean.w/in reach of the pt.
[2018-11-15 00:25] VITALS: BP_SYST 117
--- NOTE | 2018-11-15 02:00 | NUR ---
pt.assessed.pt.had awaken.pt.presented loc:confused.i had reoriented the pt.to place;[facility],time;0200a.pt.repositioned .i have provided clean;blankets;warmed. pt.has return to somnolent status.general status stable.respiratory status stable. call light/telephone placed w/in the reach of the pt.
--- NOTE | 2018-11-15 03:30 | NUR ---
i have assisted the pt.w/the urinal.i have measured/cleaned the urinal. no additional requests@this hour.
--- NOTE | 2018-11-15 04:00 | NUR ---
pt.assessed.pt.presents quiescent affect;calm,somnolent.pt.assessed for cleanliness. iv access assessed;intact;patent iv fluids infusing.urinal w/in reach of the pt.pt.capable to reposition self.call light/telephone placed w/in the reach of the pt.
[2018-11-15] MEDS: 0.45% NACL 1,000 ML IV SCH ×2 (05:33→14:01)
--- NOTE | 2018-11-15 06:30 | NUR ---
pt.assessed.pt.presents quiescent affect;calm,somnolent.i have assessed the blood glucose;value:78mg/dl.i have provided snack to the pt. i have reassessed the blood glucose:post prandal.value;155mg/dl.pt.assessed for cleanliness.general status stable,.respiratory status stable. pt.capable to reposition self.iv assess assessed;intact;patent.iv fluids infusing.call light./telephone placed w/in the reach of the pt.
--- NOTE | 2018-11-15 06:30 | NUR ---
Opening Note Report received from Trey GERARD shift nurse. Patient is currently resting in bed. Patient is currently is on falll precautions d/t frequent falls. Patient is alert and oriented x 2 only. No signs of acute distress noted. IV is on the LFA 22g running 1/2NS@75. Will continue to monitor.
[2018-11-15 08:00] VITALS: BP_SYST 142
[2018-11-15] MEDS: LACTOBACILLUS RHAMNOSUS GG 1 CAP CAPSULE PO SCH ×2 (08:18→20:29)
[2018-11-15] MEDS: MULTIVITS,CA,MINERALS/IRON/FA 1 TABLET PO SCH (08:18)
[2018-11-15] MEDS: CARBIDOPA/LEVODOPA 10/100 MG TABLET PO SCH ×4 (08:18→20:29)
[2018-11-15] MEDS: SENNOSIDES 8.6 MG TABLET PO SCH (08:18)
[2018-11-15] MEDS: DOCUSATE SODIUM 100 MG CAPSULE PO SCH (08:18)
[2018-11-15] MEDS: CARVEDILOL 12.5 MG TABLET (COREG) PO SCH ×2 (08:20→20:30)
[2018-11-15] MEDS: INSULIN GLARGINE 100 UNITS/ML 10 ML VIAL SUBCUT SCH (08:21)
--- NOTE | 2018-11-15 08:42 | NUR ---
RN Note Patient ambulated with PT.
--- NOTE | 2018-11-15 10:12 | NUR ---
Rounds Assited the patient with the bed de la o.
[2018-11-15] MEDS: INSULIN REGULAR, HUMAN 100 UNITS/ML, 10 ML VIAL (novoLIN R) SUBCUT PRN ×2 (11:24→21:58)
[2018-11-15 12:12] VITALS: BP_SYST 125
--- NOTE | 2018-11-15 12:14 | NUR ---
RN Note Patient is currently eating lunch in bed. Current BS was 174. Covered with 2 units of Humulin.
--- NOTE | 2018-11-15 14:15 | NUR ---
RN Note Patient began fidgeting around bed, stating that he had a second phone. Reorientation was provided.
[2018-11-15 16:11] VITALS: BP_SYST 132
--- NOTE | 2018-11-15 16:23 | NUR ---
Rounds Patient was cleaned and turned, tolerated well.
--- NOTE | 2018-11-15 16:54 | NUR ---
MD Rounds Dr. Romero is at the bedside examining the patient.
--- NOTE | 2018-11-15 17:57 | NUR ---
Closing Note Patient eating dinner in bed. MRI is pending and will be done on Saturday. Patient is alert and oriented x 1. Patient has had periods of incontinence throughout the shift, but has been using the urinal for the most part. IV is o the LAC 22g running 1/2NS@75. Call light is within reach and bed is in the lowest position. Will endorse care to the oncoming nurse.
--- NOTE | 2018-11-15 19:35 | NUR ---
CHANGE OF SHIFT; pt. awake, alert, still confused and forgetful with at bedside. pt. on direct observation. pt. sitting at the edge of the bed. IVF patent on left arm with 1/2 NS @ 75 cc/hr. on fall precautions. no complaints of pain at this time.
[2018-11-15 20:15] VITALS: BP_SYST 152
--- NOTE | 2018-11-15 20:30 | NUR ---
NOTES: VS checked, still at bedside, due po meds taken. feels hungry ,snacks given. IV patent. needs attended. continuous direct observation.
--- NOTE | 2018-11-15 22:00 | NUR ---
NOTES: Blood sugar checked 208 with sliding scale coverage . pt. back to bed and resting.
--- NOTE | 2018-11-16 | NUR ---
NOTES: pt. been sleeping, no distress. on direct observation.
--- NOTE | 2018-11-16 02:00 | NUR ---
NOTES: condition unchanged. continue to monitor.
--- NOTE | 2018-11-16 02:30 | NUR ---
NOTES: pt. been awake, cannot sleep at his time and feeling hungry, sleeping pill given and snack, sat at the edge of the bed. on direct observation EQUIPMENT MAINTENANCE TECHNICIAN at bedside.
[2018-11-16] MEDS: TEMAZEPAM 15 MG CAPSULE PO PRN ×2 (02:31→21:54)
[2018-11-16] MEDS: 0.45% NACL 1,000 ML IV SCH ×2 (02:37→20:33)
[2018-11-16 02:40] VITALS: BP_SYST 148
--- NOTE | 2018-11-16 04:00 | NUR ---
NOTES: no distress, condition unchanged. direct observation continue.
--- NOTE | 2018-11-16 05:08 | NUR ---
NOTES: continuous direct observation. pt. asleep. no distress.
--- NOTE | 2018-11-16 06:29 | NUR ---
NOTES: pt went back to sleep. will continue to monitor.
[2018-11-16 06:30] LABS: BASOPHILS % (AUTO) 0.1 % (0.0-2.0); EOSINOPHILS # (AUTO) 0.1 K/uL (0.0-0.4); EOSINOPHILS % (AUTO) 0.4 % (0.0-4.0); HEMATOCRIT 32.8 % (36-54); HEMOGLOBIN 10.9 g/dL (14.0-18.0); LYMPHOCYTES # (AUTO) 20.2 K/uL (1.0-5.5); LYMPHOCYTES % (AUTO) 78.9 % (20.5-51.5); MEAN CORPUSCULAR HEMOGLOBIN 33 pg (27-31); MEAN CORPUSCULAR HGB CONC 33 % (32-36); MEAN CORPUSCULAR VOLUME 100 fL (79.0-98.0); MONOCYTES # (AUTO) 0.5 K/uL (0.0-1.0); MONOCYTES % (AUTO) 1.9 % (1.7-9.3); NEUTROPHILS # (AUTO) 4.8 K/uL (1.8-7.7); NEUTROPHILS % (AUTO) 18.7 % (40.0-70.0); PLATELET COUNT (AUTO) 177 K/uL (130-430); RED BLOOD CELL COUNT(AUTO) 3.29 MIL/uL (4.2-6.2); WHITE BLOOD COUNT (AUTO) 25.7 K/uL (4.8-10.8)
--- NOTE | 2018-11-16 06:30 | NUR ---
CLOSING NOTES; pt. still asleep, will check BS. continuous direct observation, still disoriented and pleasantly confused.
[2018-11-16 06:43] LABS: ANION GAP 6 (5-15); CALCIUM 8.6 mg/dL (8.4-11.0); CHLORIDE 106 mmol/L (98-107); GLUCOSE 105 mg/dL (70-99); POTASSIUM 3.8 mmol/L (3.5-5.1); SODIUM SERUM 137 mmol/L (136-145); UREA NITROGEN, BLOOD 27 mg/dL (8-21)
--- NOTE | 2018-11-16 07:03 | NUR ---
BS 93
[2018-11-16 08:00] VITALS: BP_SYST 113
--- NOTE | 2018-11-16 08:00 | NUR ---
RN OPENING NOTE PATIENT IS RESTING IN BED, OPEN EYES, ALERT ORIENTED x2. PATIENT WAS ASSESSED VITAL SIGNS ARE STABLE. PATIENT'S BED ALARM IS ON. I'M THE SITTER FOR THIS PATIENT.BED AT LOW POSITION. PATIENT WILL BE SERVED HIS BREAKFAST SOON AND WILL BE PASSING HIS MEDICATIONS.
--- NOTE | 2018-11-16 08:45 | NUR ---
RN NOTE PATIENT TRIED TO GET OUT OF BED, CLIMBED OVER THE SIDE RAIL. THE COSTUME SPECIALIST THAT WAS BESIDE HIS BED TRIED TO HOLD HIM FROM FALLING I CAME RIGHT AWAY AND THE PATIENT WAS SWAYING AND HOLD HIM UP. THE PATIENT TRIES TO PUNCH ME IN THE FACE BUT I WAS ABLE TO AVOID HIS FIST, IN THE MEANWHILE MUD MIXER OPERATOR WAS NEXT THE THE HOUSE SUP ROOM [place] TO THE ROOM AND HELPED ME STABILIZING THE PATIENT PREVENT HIM FROM FALLING AND RETURN HIM BACK TO BED WILL CONTINUE TO MONITOR.
--- NOTE | 2018-11-16 09:10 | NUR ---
PATIENT REFUSED TO HAVE HIS MEDICATION. WHETHER FROM ME, OR FROM SARAI THE RN OR FROM BRANDIE THE CHARGE NURSE. BUT BRANDIE MANAGED TO GIVE HIM HIS SQ LANTUS. HE IS STILL TRYING TO GET OUT OF BED. BUT i'M WATCHING HIM CLOSELY, WILL CALL SEQURITY IF HELP IS NEEDED.
[2018-11-16] MEDS: INSULIN GLARGINE 100 UNITS/ML 10 ML VIAL SUBCUT SCH (09:22)
[2018-11-16] MEDS: LACTOBACILLUS RHAMNOSUS GG 1 CAP CAPSULE PO SCH ×2 (09:50→20:21)
[2018-11-16] MEDS: DOCUSATE SODIUM 100 MG CAPSULE PO SCH (09:50)
[2018-11-16] MEDS: MULTIVITS,CA,MINERALS/IRON/FA 1 TABLET PO SCH (09:50)
[2018-11-16] MEDS: SENNOSIDES 8.6 MG TABLET PO SCH (09:51)
[2018-11-16] MEDS: CARBIDOPA/LEVODOPA 10/100 MG TABLET PO SCH ×4 (09:51→20:21)
[2018-11-16] MEDS: CARVEDILOL 12.5 MG TABLET (COREG) PO SCH ×2 (09:53→20:22)
[2018-11-16 10:00] VITALS: BP_SYST 136
--- NOTE | 2018-11-16 10:01 | NUR ---
RN NOTE THE OF THE PATIENT WAS CONTACTED, THE TALKED TO THE PATIENT AND THE PATIENT ACCEPTED TO TAKE HIS MEDICATIONS. PATIENT WAS GIVEN HIS MEDICATIONS PATIENT DENIES PAIN OR DISCOMFORT. WILL CONTINUE TO MONITOR HIM FOR FALLS PATIENT IS NOW MORE PLEASANT AND UNDERSTANDING BUT STILL CONFUSED.
[2018-11-16 11:23] VITALS: BP_SYST 136
--- NOTE | 2018-11-16 12:00 | NUR ---
RN NOTE PATIENT IS RESTING IN BED. PATIENT BLOOD SUGAR WAS MEASURED TO BE 148 MG/DL, PATIENT GOT NO COVERGE. PATIENT WAS ASSISTED TO THE BATHROOM WHERE HE VOIDED URINE
--- NOTE | 2018-11-16 14:00 | NUR ---
RN NOTE PATIENT WAS GIVEN A BED BATH WITH THE HELP OF THE WILDLIFE PHOTOGRAPHER GRACE. PATIENT'S BED SHEETS AND JOANNA WERE CHANGED. WILL CONINUE TO MONITOR.
--- NOTE | 2018-11-16 16:00 | NUR ---
RN NOTE PATIENT REQUESTED TO MOVE TO THE BEDSIDE CHAIR. PATIENT IS CALM AND COOPERATIVE. PATIENT' WISH WAS GRANTED. PATIENT LATER WAS RETURNED BACK TO BED. AWAITING MEASURING HIS BLOOD SUGAR. WILL CONTINUE TO MONITOR.
[2018-11-16 17:06] VITALS: BP_SYST 130
--- NOTE | 2018-11-16 18:00 | NUR ---
RN CLOSING NOTE PATIENT IS RESTING IN BED, PATIENT WAS GIVEN HIS MEDICATIONS. PATIENT DENIES PAIN OR DISCOMFORT. PATIENT WAS THEN SERVED HIS DINNER, HELPED WITH REPOSITION IN BED. BED ALARM ON. WILL CONTINUE TO MONITOR AND WILL ENDORSE TO NEXT SHIFT.
--- NOTE | 2018-11-16 19:10 | NUR ---
CHANGE OF SHIFT; pt. awake, alert, still disoriented and kind of confused. reoriented to place, knows his name. IVF infusing well on his left forearm. maintained bed rest, on fall risk precautions. side rails up. pt. on direct observation.
[2018-11-16 20:00] VITALS: BP_SYST 146
--- NOTE | 2018-11-16 20:00 | NUR ---
NOTES: been using urinal but gets incontinent still. complete linen changed and hs care done by JENNIFER Cornejo. moves all extremities well. insisting to go restroom and assisted. able to walk back to the bed. IV site patent. VS checked.
--- NOTE | 2018-11-16 20:45 | NUR ---
NOTES: DR. Fowler here, seen pt. due po meds given. BS checked 141, no coverage.
--- NOTE | 2018-11-16 21:30 | NUR ---
NOTES: pt. been confused, trying to get out of bed. keep reorienting. cannot sleep at this time.
--- NOTE | 2018-11-16 22:00 | NUR ---
NOTES: pt. given sleeping pill and kept warm with blanket. continuous direct observation.
--- NOTE | 2018-11-16 23:30 | NUR ---
NOTES: pt. been sleeping , no distress. continuous observation.
--- NOTE | 2018-11-17 01:09 | NUR ---
NOTES: pt. been sleeping but wakes up every now and then. stii confused and disoriented. conyinue to obsrve, side rails up.
--- NOTE | 2018-11-17 02:18 | NUR ---
NOTES: pt. incontinent of urine, alice care done and kept dry. repositioned. asked to go back to sleep. condition unchanged.
[2018-11-17 02:22] VITALS: BP_SYST 128
--- NOTE | 2018-11-17 02:51 | NUR ---
pt. wants to void and uses the urinal. always keeps reminding about staying in bed and not getting out.
--- NOTE | 2018-11-17 05:00 | NUR ---
NOTES: pt. wet again, changed pad by FOAMITE MIXER, repostioned self for comfort. continue direct observation.
--- NOTE | 2018-11-17 05:47 | NUR ---
NOTES; pt. wet his gown and changed. instructed to go back to sleep. call light at bedside. skin intact.
[2018-11-17] MEDS: 0.45% NACL 1,000 ML IV SCH (06:28)
--- NOTE | 2018-11-17 06:45 | NUR ---
CLOSING NOTES; PT. CONDITION GUARDED. SCHEDULE FOR MRI BRAIN THIS AM, CALLED FOR MRI QUESTIONIRE. IVF PATENT. FALL RISK. FOR FURTHER CARE AND ASSISTANCE.
--- NOTE | 2018-11-17 07:42 | NUR ---
RN OPENING NOTE Report endorsed by night nurse at bed side. Patient is awake and alert, sitting in bed eating breakfast. Patient has no signs of distress,breathing is equal and non labored. Patient has all safety precautions in place. Patient has sitter at bed side. Patient has no other needs a this time. will continue to monitor.
[2018-11-17 08:18] VITALS: BP_SYST 157
[2018-11-17] MEDS: DOCUSATE SODIUM 100 MG CAPSULE PO SCH (08:52)
[2018-11-17] MEDS: LACTOBACILLUS RHAMNOSUS GG 1 CAP CAPSULE PO SCH ×2 (08:53→20:15)
[2018-11-17] MEDS: MULTIVITS,CA,MINERALS/IRON/FA 1 TABLET PO SCH (08:53)
[2018-11-17] MEDS: SENNOSIDES 8.6 MG TABLET PO SCH (08:53)
[2018-11-17] MEDS: CARVEDILOL 12.5 MG TABLET (COREG) PO SCH ×2 (08:53→20:15)
[2018-11-17] MEDS: CARBIDOPA/LEVODOPA 10/100 MG TABLET PO SCH ×4 (08:56→20:15)
[2018-11-17] MEDS: INSULIN GLARGINE 100 UNITS/ML 10 ML VIAL SUBCUT SCH (09:03)
--- NOTE | 2018-11-17 09:15 | NUR ---
rn rounding Patient is awake and alert, confused reoriented back to reality but is still confused. Patient has no complaints at this time. Patient has all safety precautions in place. Sitter at bed side. Patient assisted to use urinal in bed. Patinet has no other needs at this time. will continue to monitor.
--- NOTE | 2018-11-17 11:09 | NUR ---
rn roundamara Patient assisted to bathroom and back to bed. Patient has no bowel movement states only gas. Patient has no complaints at this time. Patient has all safety precautions in place. Patient has sitter at bed side no other needs at this time will continue to monitor.
[2018-11-17 12:38] VITALS: BP_SYST 139
--- NOTE | 2018-11-17 13:55 | NUR ---
MRI Patient sent to have MRI done, via [facility]. check sent was signed, and reviewed with patient's by previous shift. Patient shows no signs of any distress, breathing is equal and non labored. Patient has no other needs at this time. cardiology technician states will start with the brain and see how patient tolerates it.
[2018-11-17] MEDS ORDERED: GADOPENTETATE DIMEGLUMINE 15 ML VIAL IV ONE (14:15)
--- NOTE | 2018-11-17 15:42 | NUR ---
Patient is still in MRI
--- NOTE | 2018-11-17 17:10 | NUR ---
Patient return from MRI via gurney and transferred to bed. Addendum: 11/17/18 at 1819 by Kelsie Card RN Patient is confused reoriented back to reality. Patient states he believes he saw his cousin. wanted to sit in the chair at bed side. Patient was assisted to chair at bed side.
[2018-11-17 17:21] VITALS: BP_SYST 165
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
[2018-11-17] MEDS ORDERED: HALOPERIDOL LACTATE 5 MG/ML VIAL IM ONE (17:45)
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
--- NOTE | 2018-11-17 18:09 | NUR ---
Patients has arrived to patients room and is talking to patient. Patient is refusing medication at this time.
--- NOTE | 2018-11-17 19:00 | NUR ---
rn closing note [facility] Patient is awake and alert, patient shows less confusion with his here. Patient is still refusing hadol. Patient has all safety precautions in place. Patient is sitting in chair at bed side. patient has no other needs at this time. patient has no complaints at this time.
--- NOTE | 2018-11-17 19:15 | NUR ---
initial notes: pt is sitting on chair talking t o his , stable, calm. pt is assisted to bathroom by his , unsteady gait noted. no distress. no sob. no pain. pt sitting again to bedside chair and watch tv. needs attended. will monitor pt at bedside.
[2018-11-17 19:30] VITALS: BP_SYST 136
--- NOTE | 2018-11-17 19:35 | NUR ---
pt is watchijng tv and pull out his iv site. no bleeding noted.
--- NOTE | 2018-11-17 20:45 | NUR ---
start new iv site to right ac using gauge 22-good blood return, done aseptically. pt tolerate well.
--- NOTE | 2018-11-17 21:55 | NUR ---
notes: pt is sleeping, calm and stable. ivf infusing well. no sign of infiltration. no pain, no distress. stble. needs attended. will continue bedside monitoring.
--- NOTE | 2018-11-18 00:04 | NUR ---
pt wakes up and wants to go to bathroom. assisted pt gouing to bathroom.and back to bed, change pt gown. needs attended. safety on. will continue monitor at bedside.
[2018-11-18] MEDS: 0.45% NACL 1,000 ML IV SCH ×2 (00:53→17:06)
[2018-11-18] MEDS: TEMAZEPAM 15 MG CAPSULE PO PRN ×2 (01:02→21:32)
[2018-11-18 01:29] VITALS: BP_SYST 142
--- NOTE | 2018-11-18 02:02 | NUR ---
notes: pt is awake, confused. reorient pt. pt is calm. no pain. not distress. needs attended. safety on will continue to monitor at bedside.
--- NOTE | 2018-11-18 04:06 | NUR ---
notes: pt is sleeping, calm and stable. ivf infusing well. no sign of infiltration. no pain, no distress. stable. needs attended. safety on. will continue bedside monitoring.
--- NOTE | 2018-11-18 05:58 | NUR ---
notes: pt is sleeping. no pain, no distress. stable. ivf infusing well. no sign of infiltration. needs attended. safety on. will continue bedside monitoring.
--- NOTE | 2018-11-18 07:15 | NUR ---
closing: pt is sleeping. no sign of pain. stable. ivf intact and infusing well. safety on. needs attended the whole shift. bed side report given to am rn.
--- NOTE | 2018-11-18 07:25 | NUR ---
OPENING NOTE Patient resting in the bed. No acute distress. Skin warm and dry to touch. IV intact to LFA, no redness, no swelling, no drainage. On 06/11 NS at 75ml/hr, infusing well. Sitter at bedside. Safety measure maintained. Bed locked in low position, side rails up, bed alarm on. Call light within reached. Will continue to monitor.
[2018-11-18 07:55] VITALS: BP_SYST 145
[2018-11-18] MEDS: SENNOSIDES 8.6 MG TABLET PO SCH (09:14)
[2018-11-18] MEDS: CARBIDOPA/LEVODOPA 10/100 MG TABLET PO SCH ×4 (09:14→21:33)
[2018-11-18] MEDS: LACTOBACILLUS RHAMNOSUS GG 1 CAP CAPSULE PO SCH ×2 (09:14→21:33)
[2018-11-18] MEDS: MULTIVITS,CA,MINERALS/IRON/FA 1 TABLET PO SCH (09:14)
[2018-11-18] MEDS: DOCUSATE SODIUM 100 MG CAPSULE PO SCH (09:14)
[2018-11-18] MEDS: CARVEDILOL 12.5 MG TABLET (COREG) PO SCH ×2 (09:15→21:33)
[2018-11-18] MEDS: INSULIN GLARGINE 100 UNITS/ML 10 ML VIAL SUBCUT SCH (09:17)
--- NOTE | 2018-11-18 09:18 | NUR ---
SCHEDULE MED GIVEN Patient resting in the bed. No acute distress. PO schedule med given, swallow without difficulty, aspiration precaution maintained. Call light within reached. Bed locked in low position, side rails up, bed alarm on. Call light within reached. Sitter at bedside. Continue to monitor.
--- NOTE | 2018-11-18 11:00 | NUR ---
SITTER ASSISTED PATIENT TO USE URINAL Patient void freely, no hematuria/dysuria noted. Safety measure maintained. Call light within reached. Continue to monitor. Sitter at bedside all the time.
--- NOTE | 2018-11-18 11:34 | NUR ---
EY=744 No insulin coverage needed per sliding scale for BS-107. Sitter at bedside. IV intact, IVF infusing well. Safety measure maintained. Call light within reached. Bed locked in low position, side rails, bed alarm on. Sitter continue sit at bedside.
[2018-11-18 13:30] VITALS: BP_SYST 153
--- NOTE | 2018-11-18 13:55 | NUR ---
ROUND Patient resting in the bed comfortable. No acute distress. IV intact, IVF infusing well. Safety measure maintained. Call light within reached. Bed locked in low position, side rails up, bed alarm on. Continue to monitor.
--- NOTE | 2018-11-18 15:22 | NUR ---
ROUND Patient resting in the bed comfortable. No acute distress. IV intact, IVF infusing well. Safety measure maintained. Call light within reached. Bed locked in low position, side rails up, bed alarm on. Continue to monitor. Sitter at bedside all the time.
[2018-11-18 16:14] VITALS: BP_SYST 136
--- NOTE | 2018-11-18 17:00 | NUR ---
Dietitian Recommendations * Recommend continuing CCHO, mechanical soft diet LP, RD Please refer to Nutrition Assessment for details.
--- NOTE | 2018-11-18 17:02 | NUR ---
LZ=828 No insulin coverage needed per sliding scale for BS-127. Sitter at bedside. IV intact, IVF infusing well. Safety measure maintained. Call light within reached. Bed locked in low position, side rails, bed alarm on. Continue to monitor. Sitter at bedside all the time.
--- NOTE | 2018-11-18 18:06 | NUR ---
SEEN AND EXAMINED BY DEMARCUS FIELDS.
--- NOTE | 2018-11-18 18:49 | NUR ---
CLOSING NOTE Patient resting in the bed. No acute distress. Skin warm and dry to touch. IV intact to LFA, no redness, no swelling, no drainage. On 06/11 NS at 75ml/hr, infusing well. Sitter at bedside all the time. All needs met. Safety measure maintained. Bed locked in low position, side rails up, bed alarm on. Call light within reached. Will endorse to night nurse.
--- NOTE | 2018-11-18 19:00 | NUR ---
OPENING NOTE Received report from the day shift nurse. Patient resting in bed awake, alert, oriented x2. Breathing unlabored and even on room air. No signs of distress, no needs at this time. Fall and safety precautions in place. Bed in lowest position, brake on, alarm on, call light within reach. Sitter at the bedside. IVF infusing as ordered. Will continue to monitor.
[2018-11-18 20:00] VITALS: BP_SYST 158
--- NOTE | 2018-11-18 20:24 | NUR ---
Patient attempting to get out of bed, combative towards staff.
[2018-11-18] MEDS: INSULIN REGULAR, HUMAN 100 UNITS/ML, 10 ML VIAL (novoLIN R) SUBCUT PRN (21:36)
--- NOTE | 2018-11-18 21:39 | NUR ---
Med pass. Blood sugar 134. No insulin coverage needed at this time.
--- NOTE | 2018-11-18 22:19 | NUR ---
PAGED I PAGED DR. ATKINS @ [phone] HIS PAGER # IS [phone] HE CALLED BACK [phone]
--- NOTE | 2018-11-18 22:30 | NUR ---
Patient combative towards staff. Multiple staff members at the bedside trying to calm patient down. Will call MD for orders
--- NOTE | 2018-11-18 22:39 | NUR ---
Paged Dr. Rao
--- NOTE | 2018-11-18 22:43 | NUR ---
Dr. Rao called back. Orders received. Haldol 5mg IM x1 dose
[2018-11-18] MEDS ORDERED: HALOPERIDOL LACTATE 5 MG/ML VIAL IM ONE (23:00)
--- NOTE | 2018-11-18 23:10 | NUR ---
Patient combative towards staff and continues to try to get out of bed. Re-oriented patient with no success. Patient confused.
--- NOTE | 2018-11-18 23:15 | NUR ---
Administered haldol IM.
--- NOTE | 2018-11-19 01:19 | NUR ---
Patient resting in bed awake, alert, oriented x2. Breathing unlabored and even on room air. No signs of distress, no needs at this time. Fall and safety precautions in place. Bed in lowest position, brake on, alarm on, call light within reach. Sitter at the bedside. IVF infusing as ordered. Will continue to monitor.
[2018-11-19] MEDS: 0.45% NACL 1,000 ML IV SCH ×2 (06:07→16:40)
[2018-11-19] MEDS: INSULIN REGULAR, HUMAN 100 UNITS/ML, 10 ML VIAL (novoLIN R) SUBCUT PRN ×2 (06:10→17:10)
--- NOTE | 2018-11-19 06:11 | NUR ---
Blood sugar: 58. Addendum: 11/19/18 at 0616 by Ramona Fitzgerald RN Patient asymptomatic
--- NOTE | 2018-11-19 06:15 | NUR ---
Patient drank OJ x2. Will recheck blood sugar in 15 min.
[2018-11-19 06:21] VITALS: BP_SYST 143
--- NOTE | 2018-11-19 06:32 | NUR ---
Blood sugar check: 71. Patient asymptomatic. Reminded patient to eat his entire breakfast. Informed sitter/JENNIFER Blackburn to supervise patient during meals.
--- NOTE | 2018-11-19 06:34 | NUR ---
CLOSING NOTE Patient resting in bed awake, alert, oriented x2. Breathing unlabored and even on room air. No signs of distress, no needs at this time. Fall and safety precautions in place. Bed in lowest position, brake on, alarm on, call light within reach. Sitter at the bedside. IVF infusing as ordered. Will endorse cares to day shift nurse.
[2018-11-19 07:02] LABS: ANION GAP 8 (5-15); CALCIUM 9.2 mg/dL (8.4-11.0); CHLORIDE 107 mmol/L (98-107); CREATININE 1.04 mg/dL (0.55-1.30); GLUCOSE 68 mg/dL (70-99); POTASSIUM 3.8 mmol/L (3.5-5.1); SODIUM SERUM 139 mmol/L (136-145); UREA NITROGEN, BLOOD 20 mg/dL (8-21)
[2018-11-19 07:10] LABS: BASOPHILS # (AUTO) 0.1 K/uL (0.0-0.2); BASOPHILS % (AUTO) 0.2 % (0.0-2.0); EOSINOPHILS # (AUTO) 0.1 K/uL (0.0-0.4); EOSINOPHILS % (AUTO) 0.4 % (0.0-4.0); HEMATOCRIT 35.8 % (36-54); HEMOGLOBIN 12.1 g/dL (14.0-18.0); LYMPHOCYTES # (AUTO) 21.6 K/uL (1.0-5.5); LYMPHOCYTES % (AUTO) 78.9 % (20.5-51.5); MEAN CORPUSCULAR HEMOGLOBIN 34 pg (27-31); MEAN CORPUSCULAR HGB CONC 34 % (32-36); MEAN CORPUSCULAR VOLUME 100 fL (79.0-98.0); MONOCYTES # (AUTO) 0.6 K/uL (0.0-1.0); MONOCYTES % (AUTO) 2.2 % (1.7-9.3); PLATELET COUNT (AUTO) 203 K/uL (130-430); RED BLOOD CELL COUNT(AUTO) 3.58 MIL/uL (4.2-6.2); RED CELL DISTRIBUTION WIDTH 13.8 % (9.0-15.0); WHITE BLOOD COUNT (AUTO) 27.4 K/uL (4.8-10.8)
[2018-11-19 07:54] VITALS: BP_SYST 137
--- NOTE | 2018-11-19 08:00 | NUR ---
Note Pt sitting up in bed eating his breakfast. Pt has sitter at bedside. IV in left AC intact and patent infusing IVF's. No SOB/resp distress or pain/discomfort noted at this time. No needs noted at this time. Call light within reach. Pt is calm and is cooperative at this time.
[2018-11-19] MEDS: CARBIDOPA/LEVODOPA 10/100 MG TABLET PO SCH ×3 (08:59→16:47)
[2018-11-19] MEDS: MULTIVITS,CA,MINERALS/IRON/FA 1 TABLET PO SCH (08:59)
[2018-11-19] MEDS: SENNOSIDES 8.6 MG TABLET PO SCH (08:59)
[2018-11-19] MEDS: DOCUSATE SODIUM 100 MG CAPSULE PO SCH (08:59)
[2018-11-19] MEDS: CARVEDILOL 12.5 MG TABLET (COREG) PO SCH (08:59)
[2018-11-19] MEDS: LACTOBACILLUS RHAMNOSUS GG 1 CAP CAPSULE PO SCH (08:59)
[2018-11-19] MEDS: INSULIN GLARGINE 100 UNITS/ML 10 ML VIAL SUBCUT SCH (09:06)
[2018-11-19 09:20] LABS: NEUTROPHILS % (AUTO) 18.3 % (40.0-70.0)
[2018-11-19 11:36] VITALS: BP_SYST 147
--- NOTE | 2018-11-19 12:00 | NUR ---
Note Pt's blood sugar was checked before Lantus was given this morning at 09am. Pt has been resting in bed all morning and resting. No needs noted at this time. Pt checked q1' and PRN for needs and care. Pt is next to nurses' station all shift for close observation for needs and care. Sitter at bedside all shift. Call light within reach.
--- NOTE | 2018-11-19 14:28 | NUR ---
Discharge Planning: DCP faxed pt referral to [facility] (f [phone] p [phone]) DCP to follow up Addendum: 11/19/18 at 1549 by Salena Osborne DP DCP called to follow up with referral, Per Sahra Fournier in intake is going to review packet. DCP will follow up. Addendum: 11/19/18 at 1638 by Salena Osborne DP [facility] (f [phone] p [phone]) Rm 108A, arranged transportation with [facility] ([phone]) 7:30pm P/U nurse made aware, patient packet taken to nurse station.
--- NOTE | 2018-11-19 14:40 | NUR ---
Note Pt's sitter was dc'd at [address] T[address] Rao was on the floor/at bedside at 1345 to assess pt and orders given and carried out at this time. Pt calm and resting in bed at this time, no needs noted. Pt next to nurses' station and under close observation for needs and care. Call light within reach.
--- NOTE | 2018-11-19 15:29 | NUR ---
DC PLANNING: DR. ATKINS SPOKE WITH PATIENT'S (RADHA) REGARDING DC PLAN FOR SNF. PATIENT'S PREFER [facility]. MD ORDERED DC PLANNING TO SNF AND TRANSFER ONCE ACCEPTED. DCP FAXED CLINICAL PACKET. CM/DCP TO FOLLOW UP NEEDED.
[2018-11-19 16:00] VITALS: BP_SYST 124
--- NOTE | 2018-11-19 16:30 | NUR ---
Note Salena in [facility] dept called and stated there is a bed available for pt at [facility] and transfer is being arranged at this time.
--- NOTE | 2018-11-19 16:36 | NUR ---
CASE MANAGEMENT: PATIENT IS ACCEPTED AT [facility] AND ROOM NUMBER IS 108A. TRANSPORTATION HAS BEEN ARRANGED BY [facility] AND PUBLIC RELATIONS INTERN TIME IS AT 7:30PM CM SPOKE WITH PATIENT'S (RADHA CHAMPAGNE ) @ AND INFORM HER OF THAT [facility] ACCEPTED PATIENT AND PATIENT IS DISCHARGED TODAY. PATIENT'S AGREED AND APPROVED FOR THE DISCHARGE.
--- NOTE | 2018-11-19 17:37 | NUR ---
Stone Sandblaster BARBECUE COOK attempted to see pt. on two seperate occassions, but pt. was asleep.
[2018-11-19 17:38] VITALS: BP_SYST 124
--- NOTE | 2018-11-19 18:55 | NUR ---
Note Pt resting in bed. No needs noted at this time. No SOB/resp distress or pain/discomfort noted. No needs noted at this time. Call light within reach. Pt next to nurses' station for close observation.
--- NOTE | 2018-11-19 19:00 | NUR ---
NOTE Pt dressed in orange gown and sheet. IVF's were stopped at this time. No SOB/resp distress or pain/discomfort was noted. All belongings packed and kept at end of pt's bed for transfer. Pt sitting up in bed eating his dinner. No needs noted at this time. Call light within reach. Pt was checked on q1' and PRN all shift for needs and care. Pt next to nurses' station for close observation. Report called in to Tay MICHEL at [facility] at [phone]. Discharge packet at nurses' station.
--- NOTE | 2018-11-19 19:30 | NUR ---
[facility] called notifying us that they will be late to picker box operator the pt and they will be here in 40-60 minutes. Spoke to Red.
--- NOTE | 2018-11-19 20:09 | NUR ---
opening note Received patient awake, AOx 2 to name and . He is in no distress. He is calm and watching t.v. Meal tray is at bedside and he ate 100% of his food. VSS; B/P 134/67, HR 79Bed is locked to lowest position, side rails up 3x, bed alarm on and call light w/in reach.
--- NOTE | 2018-11-19 20:40 | NUR ---
DISCHARGE D/C Patient. Report given to Lois Barriga Heavy Media Operator for [facility]. Patient given DC instructions and Exit Care provided in packet. Patient informed transferring to [facility] and he verbalized understanding. Patient in stable condition, ID band removed. IV catheter removed, intact and dressing applied. Patient taken via [place]. All belongings sent with patient.
== END 2018-11-19 20:40 | DRG 682 ==
LOC: SED 21:13 → SMU 11-13 03:10
PROVIDERS: ADMIT Family Medicine; ATTEND Family Medicine
DX: N17.0 Acute kidney failure with tubular necrosis (principal); J18.9 Pneumonia, unspecified organism; G93.41 Metabolic encephalopathy; C83.00 Small cell B-cell lymphoma, unspecified site; E11.9 Type 2 diabetes mellitus without complications; E86.0 Dehydration; G20 Parkinson's disease; I10 Essential (primary) hypertension; F02.80 Dementia in other diseases classified elsewhere, unspecified severity, without behavioral disturbance, psychotic disturbance, mood disturbance, and anxiety; M19.90 Unspecified osteoarthritis, unspecified site; G30.9 Alzheimer's disease, unspecified; Z79.4 Long term (current) use of insulin; Z79.899 Other long term (current) drug therapy; Z91.81 History of falling
CPT/HCPCS: 36415; 70551; 71045; 72141; 72146; 72148; 72170-TC; 72192-TC; 73502; 80048; 80053; 81000-TC; 82962; 83605; 85007; 85025; 85027; 85651-TC; 86140; 87040-TC; 93971; 96365; 96366; 96367; 96372; 97110-GP; 97116-GP; 97530-GP; 99285; A9579; J1630; J1815; J2270; J2543; J3370

== ENCOUNTER 2019-05-09 10:31 | Inpatient (IN) | payer OTHER, MEDICARE ==
[~2019-05-09] VITALS: Ht 152.4 cm; Wt 73.5 kg
[2019-05-09 10:34] VITALS: BP_SYST 139
--- NOTE | 2019-05-09 10:34 | NUR ---
Patient to ER bed 1 to gown for evaluation. Side rails up. Report given to ANAND Latham.
--- NOTE | 2019-05-09 10:42 | NUR ---
Patient was brought in via [facility] from [place]. Patient is awake, alert, and oriented x1. Patient was sent in for chest pain which he denies at this time, he is complaining of left upper quadrant pain that is tender on palpation. He denies nausea or vomiting.
--- NOTE | 2019-05-09 11:00 | NUR ---
ER Dr. Haji at bedside examining patient.
[2019-05-09] MEDS ORDERED: NACL 0.9% 1,000 ML IV ONE (11:02)
[2019-05-09 11:20] LABS: HEMATOCRIT 35.2 % (36-54); HEMOGLOBIN 11.9 g/dL (14.0-18.0); MEAN CORPUSCULAR HEMOGLOBIN 34 pg (27-31); MEAN CORPUSCULAR HGB CONC 34 % (32-36); MEAN CORPUSCULAR VOLUME 101 fL (79.0-98.0); PLATELET COUNT (AUTO) 164 K/uL (130-430); RED BLOOD CELL COUNT(AUTO) 3.49 MIL/uL (4.2-6.2); RED CELL DISTRIBUTION WIDTH 14.4 % (9.0-15.0)
[2019-05-09 11:27] LABS: ANION GAP 5 (5-15); CALCIUM 8.7 mg/dL (8.4-11.0); CHLORIDE 107 mmol/L (98-107); GLUCOSE 132 mg/dL (70-99); POTASSIUM 4.1 mmol/L (3.5-5.1); SODIUM SERUM 141 mmol/L (136-145); UREA NITROGEN, BLOOD 23 mg/dL (8-21)
[2019-05-09 11:30] LABS: WHITE BLOOD COUNT (AUTO) 35.8 K/uL (4.8-10.8)
--- NOTE | 2019-05-09 11:38 | NUR ---
WBC 35.8. Dr. Haji notified.
[2019-05-09 11:39] LABS: ALANINE AMINOTRANSFERASE 7 U/L (12-78); ALBUMIN 3.3 g/dL (3.4-4.8); ASPARTATE AMINOTRANSFERASE 24 U/L (10-37); LIPASE 99 U/L (73-393)
[2019-05-09 11:54] LABS: ATYPICAL LYMPHOCYTES % 10 % (0-0); BAND % (MANUAL) 2 % (0-6); BASOPHILS % (MANUAL) 0 % (0-2); EOSINOPHILS % (MANUAL) 0 % (0-7); LYMPHOCYTES % (MANUAL) 74 % (20-46); METAMYELOCYTES % 1 % (0-0); MONOCYTES % (MANUAL) 1 % (0-11)
--- NOTE | 2019-05-09 12:10 | NUR ---
Pt assisted with urinal. Pt tolerated well. Urine sample collected and sent to lab
[2019-05-09 12:18] LABS: BILIRUBIN,URINE NEGATIVE (NEGATIVE); BLOOD, URINE NEGATIVE (NEGATIVE); CLARITY/URINE CLEAR (CLEAR); COLOR,URINE YELLOW (YELLOW); GLUCOSE,URINE NEGATIVE (NEGATIVE); KETONES,URINE NEGATIVE (NEGATIVE); LEUKOCYTE ESTERASE ,URINE NEGATIVE (NEGATIVE); NITRITE, URINE NEGATIVE (NEGATIVE); PROTEIN URINE NEGATIVE (NEGATIVE); UROBILINOGEN,URINE 0.2 (0.2-1.0)
[2019-05-09] MEDS ORDERED: PIPERACILLIN/TAZO 3.375 GM in NS 50 ML IV ONE (12:45)
[2019-05-09] MEDS ORDERED: PIPERACILLIN/TAZOBACTAM 3.375 GM/VIAL (ZOSYN) IV ONE (12:55)
--- NOTE | 2019-05-09 13:00 | NUR ---
Patient refused second set of blood cultures.
[2019-05-09] MEDS ORDERED: INSU100V9 SQ (13:10)
[2019-05-09] MEDS ORDERED: TURM500C9 PO (13:10)
[2019-05-09] MEDS ORDERED: INSU100V SQ (13:10)
[2019-05-09] MEDS ORDERED: ACET325T53 PO (13:10)
[2019-05-09] MEDS ORDERED: FINA5TAB3 PO (13:10)
[2019-05-09] MEDS ORDERED: CALC1WAF4 PO (13:10)
[2019-05-09] MEDS ORDERED: VITD2000 PO (13:10)
[2019-05-09] MEDS ORDERED: COR12.5 PO (13:10)
[2019-05-09] MEDS ORDERED: DICL75TA5 PO (13:10)
[2019-05-09] MEDS ORDERED: CARB1TAB10 PO ×2 (13:10)
--- NOTE | 2019-05-09 13:10 | NUR ---
Medication reconciliation completed with information provided by [facility]. Any prior medication reconciliation on file was reviewed and corrected.
--- NOTE | 2019-05-09 13:13 | NUR ---
Patient will be admitted to care of Dr. Scott. Admitted to medsurg unit. ANAND Gonzalez to assign room. Belongings list completed. Complete and up to date summary report printed. SBAR report to be given at bedside with opportunity for questions.
--- NOTE | 2019-05-09 13:28 | NUR ---
Transfer to 113B. Licensed nurse present. IV present no signs or symptoms of infiltration.
--- NOTE | 2019-05-09 13:35 | NUR ---
ADMISSION: The patient, HEYDI CHAMPAGNE V, 78 y/o, M admitted by FINESSE MEZA MD, was given written information regarding hospital policies, unit procedures and contact persons.
--- NOTE | 2019-05-09 13:38 | NUR ---
CONSULTATION PAGED REASON FOR CONSULTATION:LEUKOCYTOSIS WAS CONSULT CALLED?Y PERSON WHO WAS NOTIFIED:CLARA CONSULTING PHYSICIAN:RAYMOND AVILA [employer] PROFESSIONAL SPECIALTY:ID [employer] PROFESSIONAL PHONE NUMBER:[phone] ORDERING PHYSICIAN:FINESSE GALLO
--- NOTE | 2019-05-09 13:44 | NUR ---
CONSULTATION PAGED REASON FOR CONSULTATION:LEUKOCYTOSIS WAS CONSULT CALLED?Y PERSON WHO WAS NOTIFIED:BRANDEN CONSULTING PHYSICIAN:JOANNA PETERS APPLICATIONS PROJECT MANAGER SPECIALTY:HEMATOLOGY/BAIT MAKER PHONE NUMBER:[phone] ORDERING PHYSICIAN:FINESSE GALLO
--- NOTE | 2019-05-09 15:00 | NUR ---
Nurse Notes: received report from Azul Hdez, report from the emergency room, patient arrived to floor at 1335.
[2019-05-09 15:23] VITALS: BP_SYST 154
[2019-05-09 16:47] VITALS: BP_SYST 145
[2019-05-09] MEDS: cefTRIAXone 1 GM in D5W 50 ML IV SCH (17:45)
--- NOTE | 2019-05-09 18:00 | NUR ---
Nurse Notes: at bedside, Pastora, phone # [phone]. was updated with paln of care.
--- NOTE | 2019-05-09 19:35 | NUR ---
Nurse Notes: report given to the night nurse Christine Briceno RN, IV normal saline is finishing from the emergency room. No complaints of pain given, No shortness of breath.
--- NOTE | 2019-05-09 19:55 | NUR ---
Nurse Notes: medication reconciliation meds not ordered, patient is on sinemet for the patient's parkinson. patient is also a diabetic, accu-check was 200.
[2019-05-09 20:00] VITALS: BP_SYST 170
[2019-05-09] MEDS ORDERED: CARB-61 PO (20:27)
--- NOTE | 2019-05-09 20:40 | NUR ---
Nurse Notes: obtained orders for medication reconsiliation list, night nurse could not speak to the doctor sales donor recruitment representative. Daron Mathew gave orders, Dr Scott office stated Dr Montoya was sales donor recruitment representative/
[2019-05-09] MEDS ORDERED: ACETAMINOPHEN 325 MG TABLET PO PRN ×3 (20:45→23:30)
[2019-05-09] MEDS ORDERED: INSULIN REGULAR, HUMAN 100 UNITS/ML, 10 ML VIAL (humuLIN R) SUBCUT PRN ×2 (20:45→23:30)
[2019-05-09] MEDS ORDERED: INSULIN GLARGINE 100 UNITS/ML 10 ML VIAL SUBCUT SCH (21:00)
[2019-05-09] MEDS ORDERED: CARVEDILOL 12.5 MG TABLET (COREG) PO SCH (21:00)
[2019-05-09] MEDS: CARBIDOPA/LEVODOPA 25/100 MG TABLET PO SCH ×3 (21:00→22:31)
[2019-05-09] MEDS ORDERED: DICLOFENAC SODIUM 25 MG TABLET.DR PO SCH (21:00)
[2019-05-09] MEDS: DOXYCYCLINE HYCLATE 100 MG in D5W 100 ML IV SCH (22:28)
[2019-05-09] MEDS ORDERED: D5W 1,000 ML IV PRN (23:24)
[2019-05-09 23:30] VITALS: BP_SYST 170
[2019-05-09] MEDS ORDERED: ALBUTEROL SULFATE 0.083% 2.5 MG/3 ML VIAL.NEB INH PRN (23:30)
[2019-05-09] MEDS ORDERED: ONDANSETRON HCL 4 MG/2 ML VIAL IVP PRN (23:30)
[2019-05-09] MEDS ORDERED: HYDROcodone/ACETAMIN 10-325 MG TAB PO PRN (23:30)
[2019-05-09] MEDS ORDERED: HYDROcodone/ACETAMIN 5-325 MG TAB (NORCO/ VICODIN) PO PRN (23:30)
[2019-05-09] MEDS ORDERED: GLUCOSE 15 GM GEL (in 37.5 GM TUBE) PO PRN (23:30)
[2019-05-09] MEDS ORDERED: DEXTROSE 50% JECT 50 ML DISP.SYRIN IVP PRN (23:30)
[2019-05-10 00:25] VITALS: BP_SYST 161
[2019-05-10] MEDS: INSULIN LISPRO SLIDING SCALE 100 UNITS/ML VIAL (humaLOG) SQ SCH ×3 (05:20→17:00)
[2019-05-10] MEDS: NORMAL SALINE 5 ML DISP.SYRIN IVF SCH ×3 (05:20→21:05)
--- NOTE | 2019-05-10 05:38 | NUR ---
Patient's current assessment unchanged. Bed Alarm for safety.
[2019-05-10] MEDS ORDERED: NORMAL SALINE 5 ML DISP.SYRIN IVF SCH (06:00)
[2019-05-10 07:21] LABS: BASOPHILS # (AUTO) 0.1 K/uL (0.0-0.2); BASOPHILS % (AUTO) 0.2 % (0.0-2.0); EOSINOPHILS # (AUTO) 0.1 K/uL (0.0-0.4); EOSINOPHILS % (AUTO) 0.3 % (0.0-4.0); HEMATOCRIT 34.9 % (36-54); HEMOGLOBIN 11.7 g/dL (14.0-18.0); LYMPHOCYTES # (AUTO) 33.8 K/uL (1.0-5.5); LYMPHOCYTES % (AUTO) 84.3 % (20.5-51.5); MEAN CORPUSCULAR HEMOGLOBIN 34 pg (27-31); MEAN CORPUSCULAR HGB CONC 33 % (32-36); MEAN CORPUSCULAR VOLUME 101 fL (79.0-98.0); MONOCYTES # (AUTO) 0.8 K/uL (0.0-1.0); MONOCYTES % (AUTO) 1.9 % (1.7-9.3); NEUTROPHILS # (AUTO) 5.3 K/uL (1.8-7.7); NEUTROPHILS % (AUTO) 13.3 % (40.0-70.0); PLATELET COUNT (AUTO) 166 K/uL (130-430); RED BLOOD CELL COUNT(AUTO) 3.46 MIL/uL (4.2-6.2); RED CELL DISTRIBUTION WIDTH 14.5 % (9.0-15.0)
--- NOTE | 2019-05-10 07:35 | NUR ---
Nurse Notes: report from the night nurse. Patient is resting in bed, No complaints of any pain. In no respiratory distress.
[2019-05-10 07:40] LABS: ANION GAP 4 (5-15); CALCIUM 8.9 mg/dL (8.4-11.0); CHLORIDE 107 mmol/L (98-107); CREATININE 1.22 mg/dL (0.55-1.30); GLUCOSE 119 mg/dL (70-99); POTASSIUM 4.2 mmol/L (3.5-5.1); SODIUM SERUM 141 mmol/L (136-145); UREA NITROGEN, BLOOD 22 mg/dL (8-21)
[2019-05-10 07:52] VITALS: BP_SYST 157
[2019-05-10] MEDS ORDERED: FINASTERIDE 5 MG TABLET (PROSCAR) PO SCH (09:00)
[2019-05-10] MEDS ORDERED: CARBIDOPA/LEVODOPA 25/100 MG TABLET PO SCH (09:00)
[2019-05-10] MEDS ORDERED: CARVEDILOL 12.5 MG TABLET (COREG) PO SCH (09:00)
[2019-05-10] MEDS ORDERED: TURMERIC ROOT EXTRACT PO SCH (09:00)
[2019-05-10] MEDS ORDERED: CARBIDOPA PO SCH ×3 (09:00→21:00)
[2019-05-10] MEDS ORDERED: CHOLECALCIFEROL (VITAMIN D3) 2,000 UNIT TABLET PO SCH (09:00)
[2019-05-10] MEDS ORDERED: INSULIN LISPRO SLIDING SCALE 100 UNITS/ML VIAL (humaLOG) SQ SCH (09:00)
[2019-05-10] MEDS ORDERED: LEVODOPA PO SCH ×3 (09:00→21:00)
--- NOTE | 2019-05-10 10:06 | NUR ---
Nutrition Update Jose Rafael Scale 17 noted. Pt admitted for Leukocytosis Diet: [facility] BMI: 31.6 kg/m2 RD to follow per nutrition care standards.
[2019-05-10] MEDS: LEVOFLOXACIN 250 MG TABLET PO SCH (10:11)
[2019-05-10] MEDS: CHOLECALCIFEROL (VITAMIN D3) 2,000 UNIT TABLET PO SCH (10:11)
[2019-05-10] MEDS: DICLOFENAC SODIUM 25 MG TABLET.DR PO SCH ×2 (10:11→21:11)
[2019-05-10] MEDS: CARVEDILOL 12.5 MG TABLET (COREG) PO SCH ×2 (10:12→21:07)
[2019-05-10] MEDS: CALCIUM CARBONATE/VITAMIN D3 1 TAB TABLET PO SCH (10:12)
[2019-05-10] MEDS: FINASTERIDE 5 MG TABLET (PROSCAR) PO SCH (10:12)
[2019-05-10] MEDS: CARBIDOPA/LEVODOPA 25/100 MG TABLET PO SCH ×4 (10:13→21:06)
[2019-05-10] MEDS: DOXYCYCLINE HYCLATE 100 MG in D5W 100 ML IV SCH ×2 (10:44→21:04)
[2019-05-10] MEDS ORDERED: VANCOMYCIN HCL 1 GM/NS PREMIX 250 ML IV ONE (12:00)
[2019-05-10 13:12] VITALS: BP_SYST 166
--- NOTE | 2019-05-10 14:30 | NUR ---
Nurse Notes: patient wan ts to walk outside the room. accidently pulled out IV line, still has heplock on left antecubital. will continue IV antibiotics in other line.
[2019-05-10] MEDS: cefTRIAXone 1 GM in D5W 50 ML IV SCH (17:41)
--- NOTE | 2019-05-10 18:30 | NUR ---
Nurse Notes: Pastora calling. phone number [phone] as asking when the patient will be going home, stated if nothing is not being done, when is the patient going home, was told patient is receiving 3 antibiotics, patient was given the phone number of Dr Scott, so doctor can update her about the patient's condition.
[2019-05-10 20:00] VITALS: BP_SYST 124
[2019-05-10] MEDS: LORazepam 2 MG/ML VIAL IVP PRN (21:04)
[2019-05-10] MEDS: INSULIN GLARGINE 100 UNITS/ML 10 ML VIAL SQ SCH (21:14)
[2019-05-11 00:10] VITALS: BP_SYST 183
--- NOTE | 2019-05-11 00:13 | NUR ---
Patient pulled out his IV access. Patient agitated prn given.
[2019-05-11] MEDS: LORazepam 2 MG/ML VIAL IVP PRN (00:23)
--- NOTE | 2019-05-11 01:31 | NUR ---
Patient keep attempting to climb out of bed. This nurse continue s Addendum: 05/11/19 at 0136 by Three retail parts professional Patient keep attempting to climb out of the bed. This nurse continues to redirect behavior to maintain a save environment for the patient. No acute distress noted. Will continue to monitor.
[2019-05-11] MEDS: NORMAL SALINE 5 ML DISP.SYRIN IVF SCH ×3 (05:04→22:20)
[2019-05-11] MEDS: INSULIN LISPRO SLIDING SCALE 100 UNITS/ML VIAL (humaLOG) SQ SCH ×3 (05:04→17:00)
--- NOTE | 2019-05-11 05:23 | NUR ---
Mineral juice given for BS of 74
--- NOTE | 2019-05-11 06:20 | NUR ---
Patient in bed. Alarm on. No acute distress noted. Will continue to monitor.
[2019-05-11 07:14] LABS: HEMATOCRIT 38.8 % (36-54); MEAN CORPUSCULAR HEMOGLOBIN 34 pg (27-31); MEAN CORPUSCULAR HGB CONC 34 % (32-36); MEAN CORPUSCULAR VOLUME 101 fL (79.0-98.0); PLATELET COUNT (AUTO) 185 K/uL (130-430); RED BLOOD CELL COUNT(AUTO) 3.85 MIL/uL (4.2-6.2); RED CELL DISTRIBUTION WIDTH 14.1 % (9.0-15.0)
--- NOTE | 2019-05-11 07:25 | NUR ---
Opening Notes Patient received lying comfortably in bed, eyes closed but easily awaken with verbal and tactile stimuli, no moaning or grimacing noted. Respiration even and unlabored. IV line intact and in place. Fall precaution observed, bed at lowest position, bed alarm on. Call light within the reach.
[2019-05-11 07:26] LABS: WHITE BLOOD COUNT (AUTO) 41.8 K/uL (4.8-10.8)
--- NOTE | 2019-05-11 07:35 | NUR ---
Lab order by Dr. Lilly followed-up with Lab Called and spoke with Nickie from lab, followed up regarding Md order for lab and reminded it should be done today per MD order, Nickie verbalized understanding and will follow it up.
[2019-05-11 07:38] LABS: ALANINE AMINOTRANSFERASE 12 U/L (12-78); ALBUMIN 4.1 g/dL (3.4-4.8); ANION GAP 5 (5-15); ASPARTATE AMINOTRANSFERASE 29 U/L (10-37); CALCIUM 8.7 mg/dL (8.4-11.0); CHLORIDE 104 mmol/L (98-107); CREATININE 1.27 mg/dL (0.55-1.30); GLUCOSE 72 mg/dL (70-99); POTASSIUM 3.6 mmol/L (3.5-5.1); SODIUM SERUM 137 mmol/L (136-145); TOTAL BILIRUBIN 1.7 mg/dL (0.0-1.0); UREA NITROGEN, BLOOD 24 mg/dL (8-21)
[2019-05-11 07:55] LABS: C-REACTIVE PROTEIN QUANT < 0.2 mg/dL (0-0.5)
[2019-05-11 08:12] LABS: ATYPICAL LYMPHOCYTES % 14 % (0-0); BASOPHILS % (MANUAL) 0 % (0-2); EOSINOPHILS % (MANUAL) 0 % (0-7); LYMPHOCYTES % (MANUAL) 65 % (20-46); METAMYELOCYTES % 1 % (0-0); MONOCYTES % (MANUAL) 0 % (0-11)
[2019-05-11 08:15] VITALS: BP_SYST 159
[2019-05-11 08:37] LABS: ERYTHROCYTE SEDIMENTATION RATE 24 MM/HR (0-15)
--- NOTE | 2019-05-11 09:30 | NUR ---
Dr. Scott rounds, + MRSA nares and high WBC Seen and examined by Dr. Scott notified regarding high WBC level and positive MRSA nares, will follow-up for any new orders.
[2019-05-11] MEDS: DOXYCYCLINE HYCLATE 100 MG in D5W 100 ML IV SCH (10:05)
[2019-05-11] MEDS: CARBIDOPA/LEVODOPA 25/100 MG TABLET PO SCH ×4 (10:05→22:22)
[2019-05-11] MEDS: LEVOFLOXACIN 250 MG TABLET PO SCH (10:05)
[2019-05-11] MEDS: CHOLECALCIFEROL (VITAMIN D3) 2,000 UNIT TABLET PO SCH (10:06)
[2019-05-11] MEDS: CALCIUM CARBONATE/VITAMIN D3 1 TAB TABLET PO SCH (10:06)
[2019-05-11] MEDS: CARVEDILOL 12.5 MG TABLET (COREG) PO SCH ×2 (10:06→22:22)
[2019-05-11] MEDS: FINASTERIDE 5 MG TABLET (PROSCAR) PO SCH (10:06)
--- NOTE | 2019-05-11 10:40 | NUR ---
Dr. Lilly Rounds Seen and examined by MD, will follow-up for any new orders.
[2019-05-11] MEDS: DICLOFENAC SODIUM 25 MG TABLET.DR PO SCH ×2 (10:47→22:21)
--- NOTE | 2019-05-11 10:50 | NUR ---
PAGED PAGED FINESSE GALLO AT [phone] SPOKE WITH EXCHANGE.
--- NOTE | 2019-05-11 11:20 | NUR ---
Dr. Jones Rounds Seen and examined by Dr. Jones, will follow-up for any new orders.
[2019-05-11] MEDS ORDERED: MUPIROCIN 2% TOPICAL OINTMENT 22 GM NS ONE (12:00)
[2019-05-11 12:30] VITALS: BP_SYST 137
--- NOTE | 2019-05-11 13:30 | NUR ---
RN ROUNDS Patient resting well, no moaning or grimacing noted. Respiration even and unlabored. Call light within the reach.
--- NOTE | 2019-05-11 15:15 | NUR ---
RN ROUNDS Patient currently lying comfortably in bed, denies any pain or discomfort. No episode of getting at this time. Respiration even and unlabored. Call light within the reach. Fall precaution observed. Frequent visual check for safety and security.
[2019-05-11 16:08] VITALS: BP_SYST 137
--- NOTE | 2019-05-11 17:45 | NUR ---
RN ROUNDS Patient eyes closed but easily awaken with verbal and tactile stimuli, no moaning or grimacing noted. Call light within the reach.
--- NOTE | 2019-05-11 18:49 | NUR ---
Closing Notes Patient remain to be alert, awake and verbally responsive, respiration even and unlabored. Denies any pain or discomfort. Fall precaution observed, with several episodes of attempting to get up without assistance, kept reminding patient to use call light. Bed at lowest position, bed alarm on. IV saline lock in place and intact. No signs and symptoms of hyperglycemia or hypoglycemia. Call light within the reach. Will endorse to the next shift.
[2019-05-11 20:00] VITALS: BP_SYST 139
--- NOTE | 2019-05-11 20:00 | NUR ---
Pt is resting quietly in bed. No acute distress noted and no c/o pain or discomfort. Skin is warm and dry to touch. No signs or symptoms of hypoglycemia or hyperglycemia noted. Saline lock in LFA is without any signs of infiltration. Fall and safety precautions are in place.
[2019-05-11] MEDS: MUPIROCIN 2% TOPICAL OINTMENT 22 GM NS SCH (22:21)
[2019-05-11] MEDS: INSULIN GLARGINE 100 UNITS/ML 10 ML VIAL SQ SCH (22:27)
--- NOTE | 2019-05-11 22:27 | NUR ---
Pt is sitting up in a chair at the bedside. Accucheck 194 and skin remains warm and dry to touch. Regular Insulin 2 units and Lantus 19 units were given SQ. Pt ate 3 1/2 turkey sandwiches for HS snacks. Pt also drank 1 cup of milk. Pt stated he was very hungry. Fall and safety precautions are in place.
[2019-05-12] VITALS (7 sets, daily range): BP systolic 68–149
--- NOTE | 2019-05-12 | NUR ---
Pt is still sitting up in a chair at the bedside. No c/o pain or discomfort. Fall and safety precautions are in place.
--- NOTE | 2019-05-12 01:45 | NUR ---
Pt was assisted from chair to bed and made comfortable. Call light is with pt and bed alarm is on. Bed is in the lowest and locked positions.
--- NOTE | 2019-05-12 02:48 | NUR ---
Pt is sleeping comfortably in bed. Fall and safety precautions are in place.
--- NOTE | 2019-05-12 04:00 | NUR ---
Pt is sleeping without any distress noted. Fall and safety precautions are in place.
--- NOTE | 2019-05-12 06:48 | NUR ---
ACCUCHECKS 55 AND 61. PT IS FULLY AWAKE AND ALERT. SKIN IS WARM AND DRY TO TOUCH. 15GM GLUCOSE GEL GIVEN PO PER PROTOCOL. PT ALSO REQUESTED 1 CUP ORANGE JUICE WHICH HE DRANK.
[2019-05-12] MEDS: NORMAL SALINE 5 ML DISP.SYRIN IVF SCH (06:50)
[2019-05-12] MEDS: INSULIN LISPRO SLIDING SCALE 100 UNITS/ML VIAL (humaLOG) SQ SCH ×3 (06:51→17:04)
--- NOTE | 2019-05-12 07:10 | NUR ---
ACCUCHECK 82. PT REMAINS AWAKE AND ALERT. SKIN WARM AND DRY TO TOUCH. WILL ENDORSE TO DAY SHIFT NURSE.
--- NOTE | 2019-05-12 07:30 | NUR ---
Opening Notes Patient received alert, awake and verbally responsive, able to verbalize needs and concerns. Denies any pain or discomfort at this time. Respiration even and unlabored. Discussed plan of care and re-informed regarding using of call light, patient verbalized understanding. IV saline lock in place and intact Fall precaution observed, bed alarm on, bed at lowest position. Contact isolation observed. Call light within the reach. Will continue to monitor.
[2019-05-12 07:35] LABS: MEAN CORPUSCULAR HEMOGLOBIN 34 pg (27-31); MEAN CORPUSCULAR HGB CONC 34 % (32-36); MEAN CORPUSCULAR VOLUME 100 fL (79.0-98.0); PLATELET COUNT (AUTO) 159 K/uL (130-430); RED BLOOD CELL COUNT(AUTO) 3.21 MIL/uL (4.2-6.2); RED CELL DISTRIBUTION WIDTH 14.1 % (9.0-15.0)
[2019-05-12 07:37] LABS: ANION GAP 6 (5-15); CALCIUM 8.4 mg/dL (8.4-11.0); CHLORIDE 108 mmol/L (98-107); CREATININE 1.23 mg/dL (0.55-1.30); GLUCOSE 64 mg/dL (70-99); POTASSIUM 3.8 mmol/L (3.5-5.1); SODIUM SERUM 140 mmol/L (136-145); UREA NITROGEN, BLOOD 29 mg/dL (8-21)
[2019-05-12 07:40] LABS: C-REACTIVE PROTEIN QUANT < 0.2 mg/dL (0-0.5)
[2019-05-12 07:53] LABS: WHITE BLOOD COUNT (AUTO) 37.5 K/uL (4.8-10.8)
[2019-05-12] MEDS: MUPIROCIN 2% TOPICAL OINTMENT 22 GM NS SCH ×2 (08:10→22:06)
[2019-05-12] MEDS: DICLOFENAC SODIUM 25 MG TABLET.DR PO SCH ×2 (08:10→22:07)
[2019-05-12] MEDS: CHOLECALCIFEROL (VITAMIN D3) 2,000 UNIT TABLET PO SCH (08:11)
[2019-05-12] MEDS: CALCIUM CARBONATE/VITAMIN D3 1 TAB TABLET PO SCH (08:11)
[2019-05-12] MEDS: CARVEDILOL 12.5 MG TABLET (COREG) PO SCH ×2 (08:11→22:16)
[2019-05-12] MEDS: CARBIDOPA/LEVODOPA 25/100 MG TABLET PO SCH ×4 (08:11→22:07)
[2019-05-12] MEDS: FINASTERIDE 5 MG TABLET (PROSCAR) PO SCH (08:11)
[2019-05-12] MEDS: LEVOFLOXACIN 250 MG TABLET PO SCH (08:11)
[2019-05-12 08:58] LABS: ATYPICAL LYMPHOCYTES % 10 % (0-0); BASOPHILS % (MANUAL) 0 % (0-2); EOSINOPHILS % (MANUAL) 0 % (0-7); LYMPHOCYTES % (MANUAL) 72 % (20-46); MONOCYTES % (MANUAL) 2 % (0-11)
[2019-05-12 09:24] LABS: ERYTHROCYTE SEDIMENTATION RATE 18 MM/HR (0-15)
--- NOTE | 2019-05-12 09:45 | NUR ---
RN ROUNDS Patient remain to be alert, awake and verbally responsive, denies any pain or discomfort at this time. Call light within the reach.
--- NOTE | 2019-05-12 11:45 | NUR ---
RN ROUNDS Patient notified with non-compliance to safety measures, kept getting up without assistance, called and spoke to , spoke with the patient, patient then calmed down and stayed in bed. Fall precaution observed. Bed at lowest position, bed alarm on. Call light within the reach.
--- NOTE | 2019-05-12 13:40 | NUR ---
Dr. Scott Rounds Seen and examined by , notified regarding IV line infiltrated and okay to discontinue saline flush order.
--- NOTE | 2019-05-12 15:00 | NUR ---
Discharge Planning: IRVIN faxed pt referral to [facility] (f [phone] p [phone]) Yandy will call with room. Addendum: 05/12/19 at 1609 by Salena Osborne DP [facility] (f [phone] p [phone]) [facility], [facility] ([phone]) 5:00pm P/U, IRVIN took patient packet nurse station.
--- NOTE | 2019-05-12 15:30 | NUR ---
RN ROUNDS Patient lying comfortably in her bed with respiration even and unlabored. Alert, awake and verbally responsive. Call light within the reach.
--- NOTE | 2019-05-12 17:17 | NUR ---
[facility] RECEIVED CALL FROM ANAND HAJI FROM [facility] WHO STATED THAT THEY ARE UNABLE TO TAKE THE PATIENT THEY DO NOT HAVE ISOLATION BED.
--- NOTE | 2019-05-12 19:24 | NUR ---
Closing Notes Patient remain to be alert, awake and verbally responsive. Denies any pain or discomfort at this time. Respiration even and unlabored. No signs and symptoms of hyperglycemia or hypoglycemia. Fall precaution observed. Bed alarm on, bed at lowest position. Called and spoke to , notified regarding cancellation of transfer. Will endorse to the next shift.
--- NOTE | 2019-05-12 20:00 | NUR ---
Pt was received resting quietly in bed. Pt is fully awake, alert and oriented to his name only. No acute distress noted and no c/o pain or discomfort. Skin is warm and dry to touch. No signs or symptoms of hypoglycemia or hyperglycemia noted. Fall and safety precautions are in place.
[2019-05-12] MEDS: INSULIN GLARGINE 100 UNITS/ML 10 ML VIAL SQ SCH (21:00)
--- NOTE | 2019-05-12 22:09 | NUR ---
Accucheck 96 and no Insulin coverage needed. Pt ate 2 1/2 turkey sandwiches, 1 cup apple sauce and 1 cup jello for HS snacks. Skin remains warm and dry to touch.
--- NOTE | 2019-05-13 | NUR ---
Pt is resting comfortably in bed. Fall and safety precautions are in place.
[2019-05-13 00:40] VITALS: BP_SYST 147
--- NOTE | 2019-05-13 02:00 | NUR ---
Pt is sleeping comfortably in bed. Fall and safety precautions are in place.
--- NOTE | 2019-05-13 02:30 | NUR ---
Pt was assisted to the bathroom to urinate. Gait slow and unsteady.
--- NOTE | 2019-05-13 04:00 | NUR ---
Pt is sleeping comfortably in bed. Fall and safety precautions are in place.
[2019-05-13] MEDS: INSULIN LISPRO SLIDING SCALE 100 UNITS/ML VIAL (humaLOG) SQ SCH ×2 (06:14→11:46)
--- NOTE | 2019-05-13 06:30 | NUR ---
PT IS AWAKE AND RESTING COMFORTABLY IN BED. ALL PT'S NEEDS WERE ATTENDED TO. FALL AND SAFETY PRECAUTIONS ARE IN PLACE. ACCUCHECK 131 THIS AM AND NO REGULAR INSULIN COVERAGE NEEDED. SCHEDULED HUMALOG INSULIN 5 UNITS GIVEN SQ. SKIN REMAINS WARN AND DRY TO TOUCH. WILL ENDORSE TO DAY SHIFT NURSE.
[2019-05-13 07:17] LABS: HEMATOCRIT 34.6 % (36-54); HEMOGLOBIN 11.4 g/dL (14.0-18.0); MEAN CORPUSCULAR HEMOGLOBIN 33 pg (27-31); MEAN CORPUSCULAR HGB CONC 33 % (32-36); MEAN CORPUSCULAR VOLUME 101 fL (79.0-98.0); PLATELET COUNT (AUTO) 160 K/uL (130-430); RED BLOOD CELL COUNT(AUTO) 3.45 MIL/uL (4.2-6.2); RED CELL DISTRIBUTION WIDTH 14.4 % (9.0-15.0)
[2019-05-13 07:27] LABS: ANION GAP 7 (5-15); CALCIUM 8.4 mg/dL (8.4-11.0); CHLORIDE 105 mmol/L (98-107); CREATININE 1.32 mg/dL (0.55-1.30); GLUCOSE 128 mg/dL (70-99); POTASSIUM 4.1 mmol/L (3.5-5.1); SODIUM SERUM 137 mmol/L (136-145); UREA NITROGEN, BLOOD 28 mg/dL (8-21)
--- NOTE | 2019-05-13 07:30 | NUR ---
Am Rounds: Received patient having breakfast.Bedside report given by night nurse Nancy. Call light with in reach. Bed locked at lowest position. Bed alarm on. Stable.
[2019-05-13 07:52] LABS: WHITE BLOOD COUNT (AUTO) 37.4 K/uL (4.8-10.8)
[2019-05-13 09:10] LABS: LYMPHOCYTES % (MANUAL) 78 % (20-46); MONOCYTES % (MANUAL) 1 % (0-11)
[2019-05-13 09:11] LABS: ATYPICAL LYMPHOCYTES % 8 % (0-0); BASOPHILS % (MANUAL) 0 % (0-2); EOSINOPHILS % (MANUAL) 0 % (0-7)
[2019-05-13 09:32] VITALS: BP_SYST 141
[2019-05-13] MEDS: FINASTERIDE 5 MG TABLET (PROSCAR) PO SCH (09:34)
[2019-05-13] MEDS: DICLOFENAC SODIUM 25 MG TABLET.DR PO SCH (09:34)
[2019-05-13] MEDS: CARBIDOPA/LEVODOPA 25/100 MG TABLET PO SCH ×3 (09:34→16:38)
[2019-05-13] MEDS: MUPIROCIN 2% TOPICAL OINTMENT 22 GM NS SCH (09:35)
[2019-05-13] MEDS: CALCIUM CARBONATE/VITAMIN D3 1 TAB TABLET PO SCH (09:35)
[2019-05-13] MEDS: LEVOFLOXACIN 250 MG TABLET PO SCH (09:35)
[2019-05-13] MEDS: CARVEDILOL 12.5 MG TABLET (COREG) PO SCH (09:35)
[2019-05-13] MEDS: CHOLECALCIFEROL (VITAMIN D3) 2,000 UNIT TABLET PO SCH (09:36)
--- NOTE | 2019-05-13 11:49 | NUR ---
Blood Sugar: Blood qtocb=860sn/dl,scheduled Novolog 5 units subq given.No insulin per sliding scale needed this time.No problem.
[2019-05-13 12:35] VITALS: BP_SYST 129
--- NOTE | 2019-05-13 15:36 | NUR ---
family late entry due to patient care 1400 of patient called inquiring about the transfer of patient to [facility]. explained to reason of delay and notified Salena senior buyer planner to have telehealth case manager call patient
--- NOTE | 2019-05-13 15:52 | NUR ---
IRV[place] (f [phone] p [phone]) 133, [facility] ([phone]) 5:30m P/U Addendum: 05/13/19 at 1601 by Salena Osborne DP [facility] made aware pt was going to Rm 133 at [facility] ([phone]) 5:30m P/U. [facility] made nurse aware. Patients was very upset she was not communicated with very clearly with this admittance. [facility] made Julieta with Patient Experience aware and relayed name and phone number Pastora [phone].
--- NOTE | 2019-05-13 15:55 | NUR ---
RN ROUNDS: RESTING COMFORTABLY. NO NEEDS THIS TIME.
[2019-05-13 16:03] VITALS: BP_SYST 140
[2019-05-13 16:09] VITALS: BP_SYST 140
--- NOTE | 2019-05-13 17:54 | NUR ---
REPORT NOTES: REPORT GIVEN TO AYLA Dickinson RN FROM [facility].
--- NOTE | 2019-05-13 18:25 | NUR ---
DC TRANSFER NOTES: TRANSFER PACKETS AND PERSONAL BELONGINGS HAND IN TO EMT RA 613. NO IV ACCESS. PATIENT'S RADHA INFORMED OF THE TRANSFER.[facility] TRANSPORTED PATIENT TO [facility] IN STABLE CONDITION. Addendum: 05/13/19 at 1831 by Ambika Morales RN CORRECTED ABOVE TIME: CORRECT TIME 1818PM OF DC.
== END 2019-05-13 18:18 | DRG 871 ==
LOC: SED 10:31 → SMU 13:11
PROVIDERS: ADMIT Preventive Medicine Preventive Medicine/Occupational Environmental Medicine; ATTEND Preventive Medicine Preventive Medicine/Occupational Environmental Medicine
DX: A41.9 Sepsis, unspecified organism (principal); J15.9 Unspecified bacterial pneumonia; N17.9 Acute kidney failure, unspecified; C91.10 Chronic lymphocytic leukemia of B-cell type not having achieved remission; E11.65 Type 2 diabetes mellitus with hyperglycemia; F02.80 Dementia in other diseases classified elsewhere, unspecified severity, without behavioral disturbance, psychotic disturbance, mood disturbance, and anxiety; I10 Essential (primary) hypertension; G20 Parkinson's disease; D64.9 Anemia, unspecified; N40.0 Benign prostatic hyperplasia without lower urinary tract symptoms; E88.09 Other disorders of plasma-protein metabolism, not elsewhere classified; Y95 Nosocomial condition; Z22.322 Carrier or suspected carrier of Methicillin resistant Staphylococcus aureus; Z85.72 Personal history of non-Hodgkin lymphomas; Z79.899 Other long term (current) drug therapy; Z79.4 Long term (current) use of insulin
CPT/HCPCS: 36415; 71045; 80048; 80053; 81003; 82962; 83605; 83690-TC; 84484; 85007; 85025; 85027; 85651-TC; 86140; 87040-TC; 87081; 93005; 96361; 96365; 99285; J0696; J1815; J2060; J2543; J3370; J3490; J7060

== ENCOUNTER 2019-05-19 18:03 | Inpatient (IN) | payer OTHER, MEDICARE ==
[~2019-05-19] VITALS: Ht 172.7 cm; Wt 79.8 kg
[~2019-05-19 18:03] MED LIST changes: +ACET325T53 PO; +CALC1WAF4 PO; -CARB-60 PO; +CARB-61 PO; +CARB1TAB10 PO; +DICL75TA5 PO; -DOCU-144 PO; +FINA5TAB3 PO; -INSU100V11 SQ; +INSU100V9 SQ; -INSU100V9 SUBCUT; -L.RH1CAP PO; -MULT-1189 PO; -SENN-153 PO; +TURM500C9 PO; +VITD2000 PO
[2019-05-19 18:10] VITALS: BP_SYST 139
[2019-05-19 19:45] LABS: HEMATOCRIT 33.1 % (36-54); HEMOGLOBIN 11.1 g/dL (14.0-18.0); MEAN CORPUSCULAR HEMOGLOBIN 34 pg (27-31); MEAN CORPUSCULAR HGB CONC 34 % (32-36); MEAN CORPUSCULAR VOLUME 101 fL (79.0-98.0); PLATELET COUNT (AUTO) 177 K/uL (130-430); RED BLOOD CELL COUNT(AUTO) 3.27 MIL/uL (4.2-6.2); RED CELL DISTRIBUTION WIDTH 14.6 % (9.0-15.0)
[2019-05-19 19:49] LABS: PROTHROMBIN TIME 10.3 SECS (9.5-12.5)
[2019-05-19 19:57] LABS: WHITE BLOOD COUNT (AUTO) 40.7 K/uL (4.8-10.8)
[2019-05-19 20:02] LABS: ANION GAP 8 (5-15); CALCIUM 8.6 mg/dL (8.4-11.0); CHLORIDE 108 mmol/L (98-107); GLUCOSE 166 mg/dL (70-99); POTASSIUM 4.8 mmol/L (3.5-5.1); SODIUM SERUM 140 mmol/L (136-145); UREA NITROGEN, BLOOD 33 mg/dL (8-21)
[2019-05-19 20:07] LABS: ALANINE AMINOTRANSFERASE 20 U/L (12-78); ALBUMIN 3.5 g/dL (3.4-4.8); ALCOHOL, BLOOD < 3 mg/dL (<10); ASPARTATE AMINOTRANSFERASE 28 U/L (10-37); FREE T4 (FREE THYROXINE) 0.7 ng/dl (0.8-1.5); TOTAL BILIRUBIN 0.7 mg/dL (0.0-1.0)
[2019-05-19] MEDS ORDERED: NACL 0.9% 1,000 ML IV ONE ×2 (20:15→22:30)
[2019-05-19] MEDS ORDERED: cefTRIAXone 1 GM IVPB PREMIX 50 ML IV ONE (20:15)
[2019-05-19 20:42] LABS: ATYPICAL LYMPHOCYTES % 2 % (0-0); BASOPHILS % (MANUAL) 0 % (0-2); EOSINOPHILS % (MANUAL) 0 % (0-7); LYMPHOCYTES % (MANUAL) 77 % (20-46); MONOCYTES % (MANUAL) 2 % (0-11)
[2019-05-19] MEDS ORDERED: MV-M1TAB19 PO (22:30)
[2019-05-19] MEDS ORDERED: VANCOMYCIN HCL 1,000 MG in NS 250 ML IV ONE (22:30)
[2019-05-19 22:38] LABS: BILIRUBIN,URINE NEGATIVE (NEGATIVE); CLARITY/URINE CLEAR (CLEAR); COLOR,URINE YELLOW (YELLOW); GLUCOSE,URINE NEGATIVE (NEGATIVE); KETONES,URINE NEGATIVE (NEGATIVE); LEUKOCYTE ESTERASE ,URINE NEGATIVE (NEGATIVE); NITRITE, URINE NEGATIVE (NEGATIVE); PH,URINE 5.5 (5.0-8.0); PROTEIN URINE NEGATIVE (NEGATIVE); UROBILINOGEN,URINE 0.2 (0.2-1.0)
[2019-05-19 22:44] LABS: BLOOD, URINE TRACE (NEGATIVE)
[2019-05-19 22:46] LABS: BACTERIA,URINE FEW /HPF (None Seen); WBC,URINE 0-3 /HPF (0-3)
[2019-05-19 22:49] LABS: BARBITURATE, URINE NEGATIVE (NEG <=200); BENZODIAZEPINE, URINE NEGATIVE (NEG <=150); CANNABINOID, URINE NEGATIVE (NEG <=50); COCAINE, URINE NEGATIVE (NEG <=150); METHAMPHETAMINES SCREEN,URINE NEGATIVE (NEG <=500); OPIATE, URINE NEGATIVE (NEG <=100); PHENCYCLIDINE SCREEN,URINE NEGATIVE (NEG <=25); UR TRICYCLIC ANTIDEPRESSANTS NEGATIVE (NEG <=300); URINE AMPHETAMINE NEGATIVE (NEG <=500); URINE METHADONE NEGATIVE (NEG <=200); URINE OXYCODONE SCREEN NEGATIVE (NEG <=100); URINE PROPOXYPHENE SCREEN NEGATIVE (NEG <=300)
[2019-05-19] MEDS ORDERED: VANCOMYCIN HCL 1000 MG/VIAL IV ONE (23:51)
[2019-05-20 01:14] VITALS: BP_SYST 153
[2019-05-20 08:00] VITALS: BP_SYST 150
[2019-05-20] MEDS ORDERED: ALBUTEROL SULFATE 0.083% 2.5 MG/3 ML VIAL.NEB INH PRN (11:00)
[2019-05-20] MEDS ORDERED: ACETAMINOPHEN 325 MG TABLET PO PRN (11:00)
[2019-05-20] MEDS ORDERED: DEXTROSE 50% JECT 50 ML DISP.SYRIN IVP PRN ×2 (11:00→11:15)
[2019-05-20] MEDS ORDERED: INSULIN REGULAR, HUMAN 100 UNITS/ML, 10 ML VIAL (humuLIN R) SUBCUT PRN (11:15)
[2019-05-20] MEDS: PIPERACILLIN/TAZO 2.25G/DEX-IS 50 ML IV SCH ×3 (12:21→23:28)
[2019-05-20 12:49] VITALS: BP_SYST 160
[2019-05-20] MEDS: CARBIDOPA/LEVODOPA 25/100 MG TABLET PO SCH ×3 (16:12→21:08)
[2019-05-20 16:59] VITALS: BP_SYST 151
[2019-05-20 20:48] VITALS: BP_SYST 157
[2019-05-20] MEDS: INSULIN GLARGINE 100 UNITS/ML 10 ML VIAL SQ SCH (21:07)
[2019-05-20] MEDS: CARVEDILOL 12.5 MG TABLET (COREG) PO SCH (21:09)
[2019-05-20] MEDS: INSULIN REGULAR, HUMAN 100 UNITS/ML, 10 ML VIAL (humuLIN R) SUBCUT PRN (23:38)
[2019-05-21 00:38] VITALS: BP_SYST 154
[2019-05-21] MEDS: PIPERACILLIN/TAZO 2.25G/DEX-IS 50 ML IV SCH ×3 (05:57→17:13)
[2019-05-21 08:00] VITALS: BP_SYST 172
[2019-05-21] MEDS: CARBIDOPA/LEVODOPA 25/100 MG TABLET PO SCH ×4 (08:47→21:09)
[2019-05-21] MEDS: CARVEDILOL 12.5 MG TABLET (COREG) PO SCH ×2 (08:48→21:10)
[2019-05-21] MEDS: FINASTERIDE 5 MG TABLET (PROSCAR) PO SCH (08:48)
[2019-05-21] MEDS: INSULIN REGULAR, HUMAN 100 UNITS/ML, 10 ML VIAL (humuLIN R) SUBCUT PRN (12:13)
[2019-05-21 12:21] VITALS: BP_SYST 151
[2019-05-21 16:34] VITALS: BP_SYST 146
[2019-05-21 20:00] VITALS: BP_SYST 137
[2019-05-21] MEDS: INSULIN GLARGINE 100 UNITS/ML 10 ML VIAL SQ SCH (21:12)
[2019-05-22] MEDS: PIPERACILLIN/TAZO 2.25G/DEX-IS 50 ML IV SCH ×3 (00:50→11:45)
[2019-05-22] MEDS: INSULIN REGULAR, HUMAN 100 UNITS/ML, 10 ML VIAL (humuLIN R) SUBCUT PRN ×2 (00:52→11:46)
[2019-05-22 01:20] VITALS: BP_SYST 104
[2019-05-22 06:36] LABS: ALANINE AMINOTRANSFERASE 15 U/L (12-78); ALBUMIN 3.3 g/dL (3.4-4.8); ANION GAP 5 (5-15); ASPARTATE AMINOTRANSFERASE 26 U/L (10-37); CALCIUM 8.3 mg/dL (8.4-11.0); CHLORIDE 108 mmol/L (98-107); CREATININE 1.12 mg/dL (0.55-1.30); GLUCOSE 141 mg/dL (70-99); SODIUM SERUM 140 mmol/L (136-145); TOTAL BILIRUBIN 1.2 mg/dL (0.0-1.0); UREA NITROGEN, BLOOD 19 mg/dL (8-21)
[2019-05-22 06:37] LABS: BASOPHILS # (AUTO) 0.1 K/uL (0.0-0.2); BASOPHILS % (AUTO) 0.3 % (0.0-2.0); EOSINOPHILS # (AUTO) 0.2 K/uL (0.0-0.4); EOSINOPHILS % (AUTO) 0.4 % (0.0-4.0); HEMATOCRIT 34.2 % (36-54); HEMOGLOBIN 11.4 g/dL (14.0-18.0); LYMPHOCYTES # (AUTO) 31.4 K/uL (1.0-5.5); MEAN CORPUSCULAR HEMOGLOBIN 34 pg (27-31); MEAN CORPUSCULAR HGB CONC 33 % (32-36); MEAN CORPUSCULAR VOLUME 101 fL (79.0-98.0); MONOCYTES # (AUTO) 0.6 K/uL (0.0-1.0); MONOCYTES % (AUTO) 1.6 % (1.7-9.3); NEUTROPHILS % (AUTO) 17.9 % (40.0-70.0); PLATELET COUNT (AUTO) 203 K/uL (130-430); RED CELL DISTRIBUTION WIDTH 14.7 % (9.0-15.0)
[2019-05-22 07:28] LABS: WHITE BLOOD COUNT (AUTO) 39.3 K/uL (4.8-10.8)
[2019-05-22 08:18] VITALS: BP_SYST 164
[2019-05-22] MEDS: CARBIDOPA/LEVODOPA 25/100 MG TABLET PO SCH ×2 (08:23→15:42)
[2019-05-22] MEDS: FINASTERIDE 5 MG TABLET (PROSCAR) PO SCH (08:23)
[2019-05-22] MEDS: CARVEDILOL 12.5 MG TABLET (COREG) PO SCH (08:24)
[2019-05-22 11:22] VITALS: BP_SYST 140
[2019-05-22 11:38] LABS: LYMPHOCYTES % (AUTO) 79.8 % (20.5-51.5)
[2019-05-22 14:41] VITALS: BP_SYST 132
[2019-05-22 15:43] VITALS: BP_SYST 136
== END 2019-05-22 16:45 | DRG 312 ==
LOC: SED 18:03 → STU 23:35
PROVIDERS: ADMIT Internal Medicine Hospice and Palliative Medicine; ATTEND Internal Medicine Hospice and Palliative Medicine
DX: R55 Syncope and collapse (principal); C85.90 Non-Hodgkin lymphoma, unspecified, unspecified site; C91.10 Chronic lymphocytic leukemia of B-cell type not having achieved remission; E11.9 Type 2 diabetes mellitus without complications; F02.80 Dementia in other diseases classified elsewhere, unspecified severity, without behavioral disturbance, psychotic disturbance, mood disturbance, and anxiety; G20 Parkinson's disease; G30.9 Alzheimer's disease, unspecified; I10 Essential (primary) hypertension; N40.0 Benign prostatic hyperplasia without lower urinary tract symptoms; Z79.4 Long term (current) use of insulin; Z79.899 Other long term (current) drug therapy
CPT/HCPCS: 36415; 70450-TC; 71045; 74018; 80053; 80307; 81000-TC; 82140-TC; 82962; 83605; 83880; 84439; 84484; 85007; 85025; 85027; 85610-TC; 87040-TC; 87081; 93005; 96365; 96368; 99285; G0378; G0482; J0696; J1815; J2543; J3370; J7030

== ENCOUNTER 2021-03-09 17:11 | Emergency (ER) | payer OTHER, MEDICARE ==
[~2021-03-09] VITALS: Ht 165.1 cm; Wt 67.1 kg
[~2021-03-09 17:11] MED LIST changes: -CARB-61 PO; +MV-M1TAB19 PO
[2021-03-09 17:20] VITALS: BP_SYST 100; BP_SYST 102
[2021-03-09] MEDS ORDERED: SER25 PO (17:35)
[2021-03-09] MEDS ORDERED: INSU200I SQ (17:35)
[2021-03-09] MEDS ORDERED: TRAM50TA2 PO (17:35)
[2021-03-09] MEDS ORDERED: LACT10PA5 PO (17:35)
[2021-03-09] MEDS ORDERED: APIX5TAB4 PO (17:35)
[2021-03-09] MEDS ORDERED: NACL 0.9% 1,000 ML IV ONE (17:45)
[2021-03-09 18:32] LABS: ANION GAP 9 (5-15); CHLORIDE 103 mmol/L (98-107); CREATININE 1.44 mg/dL (0.55-1.30); GLUCOSE 228 mg/dL (70-99); POTASSIUM 4.8 mmol/L (3.5-5.1); SODIUM SERUM 137 mmol/L (136-145); UREA NITROGEN, BLOOD 18 mg/dL (8-21)
[2021-03-09 18:36] LABS: HEMOGLOBIN 12.7 g/dL (14.0-18.0); MEAN CORPUSCULAR HEMOGLOBIN 33 pg (27-31); MEAN CORPUSCULAR HGB CONC 33 % (32-36); MEAN CORPUSCULAR VOLUME 101 fL (79.0-98.0); PLATELET COUNT (AUTO) 207 K/uL (130-430); RED BLOOD CELL COUNT(AUTO) 3.88 MIL/uL (4.2-6.2); RED CELL DISTRIBUTION WIDTH 15.9 % (9.0-15.0)
[2021-03-09 18:41] LABS: PROTHROMBIN TIME 11.1 SECS (9.5-12.5)
[2021-03-09 18:44] LABS: ALANINE AMINOTRANSFERASE 22 U/L (12-78); ALBUMIN 3.8 g/dL (3.4-4.8); ASPARTATE AMINOTRANSFERASE 20 U/L (10-37); LIPASE 64 U/L (73-393); TOTAL BILIRUBIN 1.6 mg/dL (0.0-1.0); WHITE BLOOD COUNT (AUTO) 81.9 K/uL (4.8-10.8)
[2021-03-09 19:16] LABS: ATYPICAL LYMPHOCYTES % 6 % (0-0); BAND % (MANUAL) 1 % (0-6); BASOPHILS % (MANUAL) 0 % (0-2); EOSINOPHILS % (MANUAL) 0 % (0-7); LYMPHOCYTES % (MANUAL) 82 % (20-46); MONOCYTES % (MANUAL) 0 % (0-11)
[2021-03-09 20:48] LABS: BILIRUBIN,URINE 2+ (NEGATIVE); BLOOD, URINE NEGATIVE (NEGATIVE); GLUCOSE,URINE NEGATIVE (NEGATIVE); KETONES,URINE 1+ (NEGATIVE); LEUKOCYTE ESTERASE ,URINE NEGATIVE (NEGATIVE); NITRITE, URINE POSITIVE (NEGATIVE); PROTEIN URINE TRACE (NEGATIVE)
[2021-03-09 21:05] LABS: CLARITY/URINE HAZY (CLEAR); COLOR,URINE AMBER (YELLOW)
[2021-03-09 21:09] LABS: BACTERIA,URINE FEW /HPF (None Seen); CALCIUM OXALATE CRYSTALS,UR 0-10 /HPF (None Seen); RBC,URINE NONE SEEN /HPF (0-3); WBC,URINE 0-3 /HPF (0-3)
[2021-03-09 21:10] LABS: HYALINE CASTS, URINE 0-10 /LPF (None Seen); MUCUS,URINE 3+ /LPF (None Seen)
[2021-03-09] MEDS ORDERED: CEFU250T85 PO (22:26)
[2021-03-09] MEDS ORDERED: ONDA-8 TL (22:27)
[2021-03-09] MEDS ORDERED: cefTRIAXone 1 GM in D5W 50 ML IV ONE (22:30)
[2021-03-09] MEDS ORDERED: LIDOCAINE 1%, 20 ML MDV 20 ML ONE (22:41)
[2021-03-09] MEDS ORDERED: cefTRIAXone 1 GM VIAL IM ONE ×2 (22:45)
[2021-03-10 00:30] VITALS: BP_SYST 117
== END 2021-03-10 00:30 | disposition home or self-care (01) ==
LOC: SED 17:11
DX: R11.2 Nausea with vomiting, unspecified (principal); R55 Syncope and collapse; E86.0 Dehydration; F03.90 Unspecified dementia, unspecified severity, without behavioral disturbance, psychotic disturbance, mood disturbance, and anxiety; I10 Essential (primary) hypertension; E11.9 Type 2 diabetes mellitus without complications; Z79.899 Other long term (current) drug therapy
CPT/HCPCS: 36415; 74018; 80053; 81000; 83690; 85007; 85027; 85610; 87040; 87086; 96360; 96372; 99284; J0696; J2001; J7030

== ENCOUNTER 2021-03-25 11:22 | Emergency (ER) | payer OTHER, MEDICARE ==
[~2021-03-25] VITALS: Ht 177.8 cm; Wt 79.4 kg
[~2021-03-25 11:22] MED LIST changes: -ACET325T53 PO; -ALBU2.5V7 INH; +APIX5TAB4 PO; -CALC1WAF4 PO; +CEFU250T85 PO; -FINA5TAB3 PO; -INSU100V SQ; -INSU100V9 SQ; +INSU200I SQ; +LACT10PA5 PO; -LEVO250T2 PO; -MV-M1TAB19 PO; +ONDA-8 TL; +SER25 PO; +TRAM50TA2 PO; -TURM500C9 PO; -VITD2000 PO
[2021-03-25 11:33] VITALS: BP_SYST 110
[2021-03-25] MEDS ORDERED: CLOT24CR2 TP ×2 (12:35→12:37)
[2021-03-25] MEDS ORDERED: HYDR28.461 TP (12:35)
[2021-03-25] MEDS ORDERED: HYDC1% TP (12:37)
[2021-03-25 13:10] VITALS: BP_SYST 126
== END 2021-03-25 13:10 | disposition home or self-care (01) ==
LOC: SED 11:22
DX: N47.6 Balanoposthitis (principal); I10 Essential (primary) hypertension; E11.9 Type 2 diabetes mellitus without complications; Z79.899 Other long term (current) drug therapy
CPT/HCPCS: 81002; 99282

== ENCOUNTER 2023-01-14 18:07 | Emergency (ER) | payer MEDICARE, OTHER ==
[~2023-01-14] VITALS: Ht 162.6 cm; Wt 72.6 kg
[~2023-01-14 18:07] MED LIST changes: +CLOT24CR2 TP; +HYDC1% TP; +HYDR28.461 TP
[2023-01-14 18:15] VITALS: BP_SYST 151; PULSE 87; RESP 18; TEMP 98.3; O2SAT 98
[2023-01-14 19:53] LABS: BASOPHILS % (AUTO) 0.3 % (0.0-2.0); EOSINOPHILS # (AUTO) 0.1 K/uL (0.0-0.4); EOSINOPHILS % (AUTO) 0.6 % (0.0-4.0); HEMATOCRIT 42.4 % (36-54); HEMOGLOBIN 13.6 g/dL (14.0-18.0); LYMPHOCYTES # (AUTO) 3.8 K/uL (1.0-5.5); LYMPHOCYTES % (AUTO) 27.5 % (20.5-51.5); MEAN CORPUSCULAR HEMOGLOBIN 32 pg (27-31); MEAN CORPUSCULAR HGB CONC 32 % (32-36); MEAN CORPUSCULAR VOLUME 100 fL (79.0-98.0); MONOCYTES % (AUTO) 7.3 % (1.7-9.3); NEUTROPHILS # (AUTO) 8.9 K/uL (1.8-7.7); NEUTROPHILS % (AUTO) 64.3 % (40.0-70.0); PLATELET COUNT (AUTO) 185 K/uL (130-430); RED BLOOD CELL COUNT(AUTO) 4.23 MIL/uL (4.2-6.2); RED CELL DISTRIBUTION WIDTH 15.1 % (9.0-15.0); WHITE BLOOD COUNT (AUTO) 13.9 K/uL (4.8-10.8)
[2023-01-14 20:04] LABS: ALANINE AMINOTRANSFERASE 41 U/L (12-78); ALBUMIN 3.6 g/dL (3.4-4.8); AMYLASE 27 U/L (0-100); ANION GAP 8 (5-15); ASPARTATE AMINOTRANSFERASE 62 U/L (10-37); CALCIUM 9.5 mg/dL (8.4-11.0); CHLORIDE 116 mmol/L (98-107); LIPASE 75 U/L (73-393); UREA NITROGEN, BLOOD 51 mg/dL (8-21)
[2023-01-14 20:13] LABS: GLUCOSE 466 mg/dL (74-106)
[2023-01-14 20:16] LABS: ACETONE, SERUM NEGATIVE (NEGATIVE)
[2023-01-14] MEDS ORDERED: NACL 0.9% 1,000 ML IV ONE (21:15)
[2023-01-14] MEDS ORDERED: INSULIN REGULAR, HUMAN 10 UNITS/0.1 ML, 3 ML VIAL IVP ONE (21:15)
[2023-01-15] VITALS: PULSE 88; RESP 18; TEMP 98.4; O2SAT 98
== END 2023-01-15 00:10 | disposition home or self-care (01) ==
LOC: SED 18:07
DX: E11.65 Type 2 diabetes mellitus with hyperglycemia (principal); I10 Essential (primary) hypertension; Z79.4 Long term (current) use of insulin; Z79.899 Other long term (current) drug therapy
CPT/HCPCS: 99283; 96374; 96361; 80053; 82009; 82150; 83690; 85025; 36415; 83605; J1815; J7030

== ENCOUNTER 2023-05-23 18:36 | Inpatient (IN) | payer OTHER ==
[~2023-05-23] VITALS: Ht 162.6 cm; Wt 62.6 kg
[2023-05-23 18:47] VITALS: BP_SYST 107; PULSE 88; RESP 20; TEMP 98; O2SAT 96
[2023-05-23 20:13] LABS: BASOPHILS % (AUTO) 0.4 % (0.0-2.0); EOSINOPHILS # (AUTO) 0.1 K/uL (0.0-0.4); EOSINOPHILS % (AUTO) 1.1 % (0.0-4.0); HEMATOCRIT 39.1 % (36-54); HEMOGLOBIN 12.5 g/dL (14.0-18.0); LYMPHOCYTES # (AUTO) 2.9 K/uL (1.0-5.5); LYMPHOCYTES % (AUTO) 27.5 % (20.5-51.5); MEAN CORPUSCULAR HEMOGLOBIN 32 pg (27-31); MEAN CORPUSCULAR HGB CONC 32 % (32-36); MEAN CORPUSCULAR VOLUME 100 fL (79.0-98.0); MONOCYTES # (AUTO) 0.7 K/uL (0.0-1.0); MONOCYTES % (AUTO) 6.5 % (1.7-9.3); NEUTROPHILS # (AUTO) 6.7 K/uL (1.8-7.7); NEUTROPHILS % (AUTO) 64.5 % (40.0-70.0); PLATELET COUNT (AUTO) 159 K/uL (130-430); RED CELL DISTRIBUTION WIDTH 14.6 % (9.0-15.0); WHITE BLOOD COUNT (AUTO) 10.4 K/uL (4.8-10.8)
[2023-05-23 20:25] LABS: INR 1.1 (0.80-1.20); PROTHROMBIN TIME 11.3 SECS (9.5-12.5)
[2023-05-23 20:29] LABS: ALANINE AMINOTRANSFERASE 26 U/L (12-78); ALBUMIN 3.3 g/dL (3.4-4.8); ANION GAP 8 (5-15); ASPARTATE AMINOTRANSFERASE 34 U/L (10-37); BILIRUBIN,DIRECT 0.1 mg/dL (0.0-0.3); CARBON DIOXIDE 27 mmol/L (23-29); CHLORIDE 116 mmol/L (98-107); CREATININE 1.61 mg/dL (0.55-1.30); POTASSIUM 4.3 mmol/L (3.5-5.1); SODIUM SERUM 151 mmol/L (136-145); TOTAL BILIRUBIN 0.6 mg/dL (0.0-1.0); TOTAL PROTEIN, SERUM 6.8 g/dL (6.4-8.3); UREA NITROGEN, BLOOD 39 mg/dL (8-21)
[2023-05-23 20:40] LABS: CALCIUM 9.5 mg/dL (8.4-11.0)
[2023-05-23 20:44] LABS: ALCOHOL, BLOOD < 3 mg/dL (<10)
[2023-05-23 20:45] LABS: GLUCOSE 485 mg/dL (74-106)
[2023-05-23 20:50] LABS: ACETONE, SERUM NEGATIVE (NEGATIVE)
[2023-05-23] MEDS ORDERED: INSULIN REGULAR, HUMAN 10 UNITS/0.1 ML, 3 ML VIAL IVP ONE (21:00)
[2023-05-23 21:31] LABS: ABG O2 SAT% ESTIMATE 95.9 % (94.0-100.0); BLOOD GAS BASE EXCESS 2.7 mmol/L (-3.0-3.0); BLOOD GAS HCO3 26.6 mmol/L (21.0-27.0); BLOOD GAS PCO2 38.6 mmHg (32.0-45.0); BLOOD GAS PH 7.456 (7.350-7.450); BLOOD GAS PO2 76.1 mmHg (75.0-100.0)
[2023-05-23 21:32] LABS: ALLEN'S TEST YES (P)
[2023-05-23 21:45] LABS: BILIRUBIN,URINE NEGATIVE (NEGATIVE); BLOOD, URINE 2+ (NEGATIVE); CLARITY/URINE CLOUDY (CLEAR); COLOR,URINE YELLOW (YELLOW); GLUCOSE,URINE 2+ (NEGATIVE); KETONES,URINE NEGATIVE (NEGATIVE); LEUKOCYTE ESTERASE ,URINE 2+ (NEGATIVE); NITRITE, URINE NEGATIVE (NEGATIVE); PH,URINE 8.5 (5.0-8.0); PROTEIN URINE 2+ (NEGATIVE); UROBILINOGEN,URINE 0.2 (0.2-1.0)
[2023-05-23 22:44] LABS: BACTERIA,URINE MANY /HPF (None Seen); RBC,URINE 20-50 /HPF (0-3); WBC,URINE >100 /HPF (0-3)
[2023-05-23 22:46] LABS: BARBITURATE, URINE NEGATIVE (NEG <=200); BENZODIAZEPINE, URINE NEGATIVE (NEG <=150); CANNABINOID, URINE NEGATIVE (NEG <=50); COCAINE, URINE NEGATIVE (NEG <=150); METHAMPHETAMINES SCREEN,URINE NEGATIVE (NEG <=500); OPIATE, URINE NEGATIVE (NEG <=100); PHENCYCLIDINE SCREEN,URINE NEGATIVE (NEG <=25); URINE AMPHETAMINE NEGATIVE (NEG <=500); URINE METHADONE NEGATIVE (NEG <=200); URINE OXYCODONE SCREEN NEGATIVE (NEG <=100)
[2023-05-23 22:47] LABS: UR TRICYCLIC ANTIDEPRESSANTS POSITIVE (NEG <=300)
[2023-05-23] MEDS ORDERED: NACL 0.9% 1,000 ML IV ONE (23:00)
[2023-05-23] MEDS ORDERED: cefTRIAXone 1 GM in D5W 50 ML IV ONE (23:00)
[2023-05-23] MEDS ORDERED: ONDANSETRON HCL 4 MG/2 ML VIAL IVP PRN (23:15)
[2023-05-23] MEDS ORDERED: ACETAMINOPHEN 500 MG TABLET PO ONE (23:15)
[2023-05-23] MEDS ORDERED: cefTRIAXone 1 GM VIAL ONE (23:20)
[2023-05-23] MEDS ORDERED: DICL20GE TP (23:45)
[2023-05-23] MEDS ORDERED: ERGO2000 PO (23:45)
[2023-05-23] MEDS ORDERED: ASCO500C18 PO (23:45)
[2023-05-23] MEDS ORDERED: ACAL100T PO (23:45)
[2023-05-23] MEDS ORDERED: ZINC100T2 PO (23:45)
[2023-05-23] MEDS ORDERED: ACET325T PO (23:45)
[2023-05-23] MEDS ORDERED: FINA-37 PO (23:45)
[2023-05-23] MEDS ORDERED: CARB1TAB8 PO (23:45)
[2023-05-23] MEDS ORDERED: APIX2.5T PO (23:45)
[2023-05-23] MEDS ORDERED: PHEDM120 PO (23:45)
[2023-05-23] MEDS ORDERED: LOM2.5 PO (23:45)
[2023-05-24] VITALS: BP_SYST 130; PULSE 81; RESP 18; TEMP 98.5
[2023-05-24] MEDS: INSULIN REGULAR, HUMAN 100 UNITS/ML, 3 ML VIAL (humuLIN R) SUBCUT PRN ×2 (00:55→05:19)
[2023-05-24] MEDS ORDERED: INSULIN GLARGINE 100 UNITS/ML, 10 ML VIAL SUBCUT SCH (01:00)
[2023-05-24 08:26] VITALS: BP_SYST 139; PULSE 78; RESP 20; TEMP 97; O2SAT 99
[2023-05-24] MEDS: cefTRIAXone 1 GM IVPB PREMIX 50 ML IV SCH (10:51)
[2023-05-24 11:08] VITALS: BP_SYST 128; PULSE 81; RESP 16; TEMP 97.4; O2SAT 92
[2023-05-24 15:07] VITALS: BP_SYST 123; PULSE 93; RESP 16; TEMP 97.5; O2SAT 93
[2023-05-24 20:00] VITALS: BP_SYST 127; PULSE 87; RESP 18; TEMP 99.2; O2SAT 95; O2SAT 96
[2023-05-24] MEDS: FINASTERIDE 5 MG TABLET (PROSCAR) PO SCH (20:15)
[2023-05-24] MEDS: CARVEDILOL 12.5 MG TABLET (COREG) PO SCH ×2 (21:00→22:14)
[2023-05-24] MEDS: APIXABAN 2.5 MG TABLET PO SCH ×2 (21:00→22:24)
[2023-05-24] MEDS: QUEtiapine FUMARATE 25 MG TABLET PO SCH ×2 (21:00→22:15)
[2023-05-25 01:10] VITALS: BP_SYST 120; PULSE 88; RESP 16; TEMP 98.3
[2023-05-25] MEDS: traMADol HCL HCL 50 MG TABLET (ULTRAM) PO PRN (06:11)
[2023-05-25] MEDS: INSULIN REGULAR, HUMAN 100 UNITS/ML, 3 ML VIAL (humuLIN R) SUBCUT PRN (06:13)
[2023-05-25 08:00] VITALS: BP_SYST 115; PULSE 77; RESP 18; TEMP 98.6
[2023-05-25] MEDS: cefTRIAXone 1 GM IVPB PREMIX 50 ML IV SCH (09:38)
[2023-05-25] MEDS: FINASTERIDE 5 MG TABLET (PROSCAR) PO SCH (09:39)
[2023-05-25] MEDS: CARVEDILOL 12.5 MG TABLET (COREG) PO SCH ×2 (09:39→21:00)
[2023-05-25] MEDS: QUEtiapine FUMARATE 25 MG TABLET PO SCH ×2 (09:40→20:58)
[2023-05-25] MEDS: APIXABAN 2.5 MG TABLET PO SCH ×2 (09:41→20:58)
[2023-05-25 10:45] VITALS: O2SAT 96
[2023-05-25 11:17] VITALS: BP_SYST 125; PULSE 77; RESP 16; TEMP 97.7; O2SAT 93
[2023-05-25 16:18] VITALS: BP_SYST 126; PULSE 81; RESP 16; TEMP 97.6; O2SAT 96
[2023-05-25 20:00] VITALS: BP_SYST 117; PULSE 69; RESP 18; TEMP 81.5; TEMP 98; O2SAT 97
[2023-05-25] MEDS: INSULIN GLARGINE 100 UNITS/ML, 10 ML VIAL SUBCUT SCH (20:58)
[2023-05-26] VITALS (8 sets, daily range): BP systolic 103–135; PULSE 78–85; RESP 14–20; TEMP 96.9–98.3; O2SAT 95–99
[2023-05-26] MEDS: cefTRIAXone 1 GM IVPB PREMIX 50 ML IV SCH (08:06)
[2023-05-26] MEDS: CARVEDILOL 12.5 MG TABLET (COREG) PO SCH ×2 (08:07→22:25)
[2023-05-26] MEDS: FINASTERIDE 5 MG TABLET (PROSCAR) PO SCH (08:07)
[2023-05-26] MEDS: QUEtiapine FUMARATE 25 MG TABLET PO SCH ×2 (08:08→22:25)
[2023-05-26] MEDS: APIXABAN 2.5 MG TABLET PO SCH ×2 (08:08→22:26)
[2023-05-26] MEDS: INSULIN REGULAR, HUMAN 100 UNITS/ML, 3 ML VIAL (humuLIN R) SUBCUT PRN (12:14)
[2023-05-26] MEDS: INSULIN GLARGINE 100 UNITS/ML, 10 ML VIAL SUBCUT SCH (21:00)
[2023-05-26] MEDS ORDERED: MEROPENEM 500 MG VIAL IV ONE (21:09)
[2023-05-26] MEDS: MEROPENEM 500 MG in NS 50 ML IV SCH (22:26)
[2023-05-27] VITALS (7 sets, daily range): BP systolic 107–141; PULSE 74–86; RESP 15–20; TEMP 97.5–98.4; O2SAT 94–99
[2023-05-27] MEDS: MEROPENEM 500 MG in NS 50 ML IV SCH ×3 (06:00→23:25)
[2023-05-27 06:55] LABS: BASOPHILS % (AUTO) 0.3 % (0.0-2.0); EOSINOPHILS # (AUTO) 0.2 K/uL (0.0-0.4); EOSINOPHILS % (AUTO) 2.3 % (0.0-4.0); HEMATOCRIT 34.7 % (36-54); HEMOGLOBIN 11.3 g/dL (14.0-18.0); LYMPHOCYTES # (AUTO) 1.8 K/uL (1.0-5.5); LYMPHOCYTES % (AUTO) 21.2 % (20.5-51.5); MEAN CORPUSCULAR HEMOGLOBIN 32 pg (27-31); MEAN CORPUSCULAR HGB CONC 33 % (32-36); MEAN CORPUSCULAR VOLUME 98 fL (79.0-98.0); MONOCYTES # (AUTO) 0.7 K/uL (0.0-1.0); MONOCYTES % (AUTO) 8.2 % (1.7-9.3); NEUTROPHILS # (AUTO) 5.8 K/uL (1.8-7.7); PLATELET COUNT (AUTO) 142 K/uL (130-430); RED BLOOD CELL COUNT(AUTO) 3.55 MIL/uL (4.2-6.2); RED CELL DISTRIBUTION WIDTH 13.8 % (9.0-15.0); WHITE BLOOD COUNT (AUTO) 8.5 K/uL (4.8-10.8)
[2023-05-27 07:41] LABS: ANION GAP 9 (5-15); CALCIUM 8.1 mg/dL (8.4-11.0); CARBON DIOXIDE 27 mmol/L (23-29); CHLORIDE 119 mmol/L (98-107); CREATININE 1.13 mg/dL (0.55-1.30); GLUCOSE 97 mg/dL (74-106); POTASSIUM 3.5 mmol/L (3.5-5.1); SODIUM SERUM 155 mmol/L (136-145); UREA NITROGEN, BLOOD 20 mg/dL (8-21)
[2023-05-27] MEDS: QUEtiapine FUMARATE 25 MG TABLET PO SCH ×2 (09:24→23:25)
[2023-05-27] MEDS: CARVEDILOL 12.5 MG TABLET (COREG) PO SCH ×2 (09:25→23:27)
[2023-05-27] MEDS: FINASTERIDE 5 MG TABLET (PROSCAR) PO SCH (09:25)
[2023-05-27] MEDS: APIXABAN 2.5 MG TABLET PO SCH ×2 (09:26→23:29)
[2023-05-27] MEDS ORDERED: RACEPINEPHRINE HCL 0.5 ML VIAL.NEB INH ONE (13:47)
[2023-05-27] MEDS: INSULIN GLARGINE 100 UNITS/ML, 10 ML VIAL SUBCUT SCH (21:00)
[2023-05-27] MEDS: traMADol HCL HCL 50 MG TABLET (ULTRAM) PO PRN (23:25)
[2023-05-28] VITALS: BP_SYST 122; PULSE 87; RESP 16; TEMP 98.6; O2SAT 96
[2023-05-28] MEDS: MEROPENEM 500 MG in NS 50 ML IV SCH ×2 (06:42→17:51)
[2023-05-28 08:00] VITALS: O2SAT 93
[2023-05-28 08:42] VITALS: BP_SYST 127; PULSE 74; RESP 22; TEMP 99.5; O2SAT 93
[2023-05-28] MEDS: QUEtiapine FUMARATE 25 MG TABLET PO SCH ×2 (09:31→22:18)
[2023-05-28] MEDS: CARVEDILOL 12.5 MG TABLET (COREG) PO SCH ×2 (09:31→22:18)
[2023-05-28] MEDS: APIXABAN 2.5 MG TABLET PO SCH ×2 (09:32→22:19)
[2023-05-28] MEDS: FINASTERIDE 5 MG TABLET (PROSCAR) PO SCH (09:32)
[2023-05-28] MEDS: INSULIN REGULAR, HUMAN 100 UNITS/ML, 3 ML VIAL (humuLIN R) SUBCUT PRN (12:28)
[2023-05-28 12:36] VITALS: BP_SYST 125; PULSE 78; RESP 20; TEMP 99; O2SAT 97
[2023-05-28 16:10] VITALS: BP_SYST 126; PULSE 76; RESP 21; TEMP 99.1; O2SAT 96
[2023-05-28 20:35] VITALS: BP_SYST 132; PULSE 88; RESP 18; TEMP 97.8; O2SAT 98
[2023-05-28] MEDS: INSULIN GLARGINE 100 UNITS/ML, 10 ML VIAL SUBCUT SCH (22:26)
[2023-05-29 00:33] VITALS: BP_SYST 130; PULSE 79; RESP 19; TEMP 98.6; O2SAT 96
[2023-05-29] MEDS: MEROPENEM 500 MG in NS 50 ML IV SCH ×2 (02:12→10:08)
[2023-05-29 08:00] VITALS: BP_SYST 131; PULSE 80; RESP 16; TEMP 97.3
[2023-05-29] MEDS: QUEtiapine FUMARATE 25 MG TABLET PO SCH (10:05)
[2023-05-29] MEDS: FINASTERIDE 5 MG TABLET (PROSCAR) PO SCH (10:06)
[2023-05-29] MEDS: APIXABAN 2.5 MG TABLET PO SCH (10:06)
[2023-05-29] MEDS: CARVEDILOL 12.5 MG TABLET (COREG) PO SCH (10:07)
[2023-05-29 11:26] VITALS: BP_SYST 132; PULSE 82; RESP 18; TEMP 97.8; O2SAT 97
[2023-05-29 13:44] VITALS: BP_SYST 132; PULSE 82; RESP 18; TEMP 97.8; O2SAT 97
[2023-05-29] MEDS ORDERED: ERTA1VIA3 IV (14:03)
[2023-05-29 16:00] VITALS: BP_SYST 130; PULSE 77; RESP 17; TEMP 97.5; O2SAT 96
== END 2023-05-29 16:00 | DRG 637 ==
LOC: SED 18:36 → STU 23:01 → SMU 05-26 18:27
PROVIDERS: ADMIT Family Medicine; ATTEND Family Medicine
DX: E11.65 Type 2 diabetes mellitus with hyperglycemia (principal); G93.41 Metabolic encephalopathy; I27.82 Chronic pulmonary embolism; N39.0 Urinary tract infection, site not specified; G20.A1 Parkinson's disease without dyskinesia, without mention of fluctuations; F02.80 Dementia in other diseases classified elsewhere, unspecified severity, without behavioral disturbance, psychotic disturbance, mood disturbance, and anxiety; G80.9 Cerebral palsy, unspecified; I10 Essential (primary) hypertension; Z79.01 Long term (current) use of anticoagulants; Z79.899 Other long term (current) drug therapy; Z79.4 Long term (current) use of insulin
CPT/HCPCS: 36415; 36600; 70450-TC; 71045; 76376; 76770; 80048; 80076; 80307; 81000; 81001; 81015; 82009; 82803; 82962; 83605; 84484; 85025; 85610-TC; 85730-TC; 87040; 87081; 87086; 93005; 96365; 96375; 97110-GP; 97112-GP; 97530-GP; 99285; G0378; G0482; J0696; J1815; J2185